=== PATIENT | female | born 1990 | race Caucasian/White ===

== ENCOUNTER 2016-09-05 09:20 | Outpatient (CLI) | payer OTHER ==
[~2016-09-05 09:20] MED LIST: ACET-1256 PO; BISA-16 PO; CLIN1GEL29 TOP; FRCT/ PO; ONDA4TAB10 SL; ONDA4TAB4 PO; POLY335019 PO; PRENTAB26 PO; PROM25TA PO
[2016-09-05] MEDS ORDERED: LACTATED RINGER'S 1000ML 500 ML IV ONE (09:43)
[2016-09-05] MEDS ORDERED: LACTATED RINGER'S 1000ML 1,000 ML IV SCH (09:43)
[2016-09-05] MEDS ORDERED: ACETAMINOPHEN 325 MG TAB PO PRN (09:45)
[2016-09-05] MEDS ORDERED: PROMETHAZINE HCL INJ 25 MG in SODIUM CHLORIDE 0.9% 50ML 50 ML IV PRN (09:45)
[2016-09-05] MEDS ORDERED: ONDANSETRON INJ 2 MG/ML 2 ML VIAL IV PRN (09:45)
[2016-09-05 10:46] LABS: BASO % 0.1 %; BASO ABS # 0.01 K/uL (0-0.2); COMPLETE YES; EOS % 1.5 %; HEMATOCRIT 29.4 % (37-47); IG% 0.5 %; LYMPH % 15.4 %; LYMPH ABS # 2.02 K/uL (1.2-3.4); MEAN CELL VOLUME 88.3 fL (80-100); MEAN CORPUSCULAR HEMOGLOBIN 29.4 pg (25-34); MEAN CORPUSCULAR HGB CONC 33.3 g/dl (32-36); MEAN PLATELET VOLUME 10.2 fL (7.4-10.4); NEUT % 78.5 %; PLATELET COUNT 183 K/uL (130-400); RED BLOOD COUNT 3.33 M/uL (4.2-5.4); WHITE BLOOD COUNT 13.08 K/uL (4.8-10.8)
[2016-09-05 10:58] LABS: URINE APPEARANCE CLEAR (CLEAR); URINE BILIRUBIN NEG (NEG); URINE COLOR YELLOW; URINE EPITHELIAL CELL AUTO >30 /lpf (0-5); URINE NITRITE NEG (NEG); URINE SPECIFIC GRAVITY 1.011 (1.000-1.030); UROBILINOGEN NEG (NEG); ZZUR CULT IF INDIC CLEAN CATCH NO
[2016-09-05 11:05] LABS: MANUAL MICROSCOPIC REQUIRED? NO; REVIEW REQ? NO
[2016-09-05 12:18] LABS: ALT/SGPT 17 U/L (12-78); AMYLASE 29 U/L (25-115); AST/SGOT 17 U/L (15-37); BLOOD UREA NITROGEN 10 mg/dl (7-18); BUN/CREATININE RATIO 20.3 (10-20); CALCIUM 8.2 mg/dl (8.5-10.1); CARBON DIOXIDE 25 mmol/L (21-32); CHLORIDE 108 mmol/L (98-107); CREATININE 0.49 mg/dl (0.60-1.20); GLUCOSE 69 mg/dl (70-99); SODIUM 141 mmol/L (136-145)
[2016-09-05 12:20] LABS: ALB/GLOB RATIO 0.7 (0.9-2); ALKALINE PHOSPHATASE 70 U/L (45-117)
[2016-09-05] MEDS ORDERED: FRRS300 MT (13:08)
== END 2016-09-05 13:25 | disposition home or self-care (01) ==
LOC: C.OPB 09:20 → C.LD 09:20 → C.OPB 13:25
PROVIDERS: ATTEND Obstetrics & Gynecology
DX: O26.893 Other specified pregnancy related conditions, third trimester (principal); O21.0 Mild hyperemesis gravidarum; O34.43 Maternal care for other abnormalities of cervix, third trimester; Z3A.33 33 weeks gestation of pregnancy; Z86.14 Personal history of Methicillin resistant Staphylococcus aureus infection

== ENCOUNTER 2016-10-23 03:21 | Inpatient (IN) | payer OTHER ==
[~2016-10-23] VITALS: Ht 165.1 cm; Wt 79.4 kg
[~2016-10-23 03:21] MED LIST changes: +FRRS300 MT
[2016-10-23] MEDS ORDERED: LACTATED RINGER'S 1000ML 1,000 ML IV PRN (03:34)
[2016-10-23] MEDS ORDERED: LACTATED RINGER'S 1000ML 1,000 ML IV SCH (03:34)
[2016-10-23 04:06] LABS: HEMATOCRIT 32.9 % (37-47); MEAN CELL VOLUME 88.7 fL (80-100); MEAN CORPUSCULAR HEMOGLOBIN 28.8 pg (25-34); MEAN PLATELET VOLUME 10.5 fL (7.4-10.4); PLATELET COUNT 183 K/uL (130-400); RED BLOOD COUNT 3.71 M/uL (4.2-5.4); WHITE BLOOD COUNT 12.65 K/uL (4.8-10.8)
[2016-10-23 04:11] LABS: MEAN CORPUSCULAR HGB CONC 32.5 g/dl (32-36)
--- NOTE | 2016-10-23 04:20 | History and Physical ---
History & Physical Date of Service Oct 23, 2016. Complaint Check Labor History of Present Illness Source: patient This is a 26-year-old due date was 10/20/2016. Patient is 40 weeks and 3 days gestation. presentas to L&D for labor check. No shortness of breath no chills no fever Melissa rupture of membranes. no bloody show. Pelvic exam shows she is 4 cm/ 50percent effaced and -1 station. Bedside ultrasound shows cephalic presentation. Patient is therefore admitted. course has been unremarkable. Labs reviewed. 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 Past Medical History Hx fo MRSA Past Surgical History Colposocpy Family History [place] Social History Smoking Status: Never Smoker Smokeless Tobacco Use: No Alcohol Use: none Drug Use: none Marital Status: Occupational Status: unemployed Allergies Coded Allergies: No Known Allergies (Unverified , 03/28/16) Home Medications Scheduled Clindamycin Phosphate-Benzoyl (Clindamycin/Benzoyl Perox), 1 APPLN TOP BID Ferrous Sulfate (Ferrous Sulfate), 325 MG MT BID Multivit/Min/Iron/Fol Ac/Pren ( Vitamin), 1 TAB PO DAILY Ondasetron Odt (Zofran Odt), 4 MG SL Q6H Scheduled PRN Acetamin/Butalbital/Caffeine (Fioricet), 1 TAB PO Q4 PRN for Headache Acetaminophen (Tylenol), 500-1,000 MG PO for Headache or Pain Bisacodyl (Dulcolax), 1-3 TAB PO DAILY PRN for Constipation Ondansetron Tab (Zofran), 4 MG PO Q8 PRN for Nausea Polyethylene Glycol 3350 (Miralax), 17 GM PO DAILY PRN for Constipation Promethazine (Phenergan), 25 MG PO Q6H PRN for Nausea Review of Systems Constitutional: No fever, No chills, No sweats, No weight loss, No weakness, No fatigue, No problem reported Eyes: No worsening of vision, No eye pain, No redness, No discharge, No diplopia, No problem reported ENT: No hearing loss, No unusual epistaxis, No nasal symptoms, No sore throat, No tinnitus, No dental problems, No trouble swallowing, No problem reported Respiratory: No cough, No sputum, No wheezing, No shortness of breath, No dyspnea on exertion, No dyspnea at rest, No hemoptysis, No problem reported Cardiovascular: No chest pain, No orthopnea, No PND, No edema, No claudication , No palpitations, No problem reported Abdomen: No pain, No nausea, No vomiting, No diarrhea, No constipation, No GI bleeding, No problem reported Musculoskeletal: No joint pain, No muscle pain, No swelling, No calf pain, No problem reported Genitourinary - Female: No dysuria, No urinary frequency, No urinary urgency, No urinary incontinence, No urinary retention, No hematuria, No dysmenorrhea, No menorrhagia, No metrorrhagia, No rash, No vaginal bleeding, No vaginal discharge, No vaginal itching, No vulvodynia, No , No problem reported Neurologic: No memory loss, No paralysis, No weakness, No numbness/tingling, No vertigo, No balance problems, No problem reported Psychiatric: No depression symptoms, No anhedonism, No anxiety, No insomnia, No substance abuse, No problem reported Endocrine: No fatigue, No excessive thirst, No excessive urination, No problem reported Hematologic / Lymphatic: No abnormal bleeding/bruising, No clotting problems, No swollen lymph nodes, No night sweats, No problem reported Integumentary: No rash, No itch, No new/changing skin lesions, No color change , No bleeding, No problem reported Allergic / Immunologic: No environmental allergies, No seasonal allergies, No pet sensitivities, No food allergies, No hives, No frequent infections, No poor healing, No prolonged convalescence, No problem reported Physical Exam General Appearance: WD/WN Head: normocephalic Eyes: normal inspection ENT: normal ENT inspection Neck: supple Respiratory/Chest: chest non-tender Cardiovascular: regular rate, rhythm Abdomen / GI: normal bowel sounds Genitourinary - Female: external genitalia normal Back: normal inspection Extremities: normal inspection 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
[2016-10-23] MEDS ORDERED: EpHEDrine SULFATE INJ 50 MG/ML AMP ONE (04:54)
[2016-10-23] MEDS ORDERED: BUPIVACAINE 0.25% 30 ML VIAL ONE (04:54)
[2016-10-23] MEDS ORDERED: FENTANYL 2MCG/ML ROPIV 1.25MG/ML 100ML BAG EPI ONE (04:54)
[2016-10-23] MEDS ORDERED: FENTANYL CITRATE INJ 50 MCG/1 ML 2 ML VIAL ONE (04:55)
[2016-10-23] MEDS ORDERED: ONDANSETRON INJ 2 MG/ML 2 ML VIAL IV PRN (05:00)
[2016-10-23] MEDS ORDERED: NALOXONE HCL INJ 0.4 MG/1 ML VIAL/CARP IV PRN (05:00)
[2016-10-23] MEDS ORDERED: FENTANYL 2MCG/ML ROPIV 1.25MG/ML 100ML BAG EPI PRN (05:00)
[2016-10-23] MEDS ORDERED: DiphenhydrAMINE HCL 50 MG/ML VIAL IV PRN (05:00)
[2016-10-23] MEDS ORDERED: LACTATED RINGER'S 1000ML 500 ML IV PRN ×2 (05:00→06:58)
[2016-10-23] MEDS ORDERED: EpHEDrine SULFATE INJ 50 MG/ML AMP IV PRN (05:00)
[2016-10-23] MEDS ORDERED: NALOXONE HCL INJ 1 MG in SODIUM CHLORIDE 0.9% 1000ML 1,000 ML IV PRN (05:00)
[2016-10-23] MEDS ORDERED: NALBUPHINE HCL INJ 10 MG/ML AMP IV PRN (05:00)
[2016-10-23 05:13] VITALS: Ht 165.1 cm; Wt 79.4 kg
[2016-10-23] MEDS ORDERED: OXYTOCIN 30 UNITS/500ML NSS IV PRN ×2 (07:00→09:00)
[2016-10-23] MEDS ORDERED: BENZOCAINE 20% AER SPR 82.5 GM CAN EXT PRN (09:00)
[2016-10-23] MEDS ORDERED: HYDROCORTISONE ACETATE 25 MG SUPP PR PRN (09:00)
[2016-10-23] MEDS ORDERED: LANOLIN OINT EXT PRN ×2 (09:00)
[2016-10-23] MEDS ORDERED: DIPHTHERIA/TETANUS/PERTUSSIS 0.5 ML SYR/VIAL IM. ONE (09:00)
[2016-10-23] MEDS ORDERED: OXYCODONE/ACETAMINOPHEN 5-325 TAB PO PRN (09:00)
[2016-10-23] MEDS ORDERED: ACETAMINOPHEN/CODEINE 300/30MG TAB PO PRN (09:00)
[2016-10-23] MEDS ORDERED: ACETAMINOPHEN 325 MG TAB PO PRN (09:00)
[2016-10-23] MEDS ORDERED: SUPERCREAM 0.870 % 15GM JAR EXT PRN (09:00)
--- NOTE | 2016-10-23 09:18 | Progress Note ---
Progress Note Date of Service Oct 23, 2016. Progress Note DELIVERY NOTE: DATE OF DELIVERY: 10/23/2016 TIME OF DELIVERY: 0850 DELIVERY OF PLACENTA: 0852 DELIVERY SUMMARY: Patient is a @ 40.3 weeks who was admitted to L&D in active labor on the morning of 10/23/16. She received an epidural for anesthesia. AROM with clear fluid performed at 0704. She reached complete dilation at 0842 with the urge to push. She pushed to delivery at 0850. She delivered a viable female in the SUKHDEEP position to an intact perineum. Anterior shoulder was delivered with Chantell maneuver. Baby was placed on the patients abdomen, cord was clamped x 2 and cut. APGARs were 8 at 1 minute and 9 at minutes. Cord blood was obtained. An intact placenta with a 3 VC delivered spontaneously. Oxytocin infusion was began. The lower uterine segment and vagina was cleared of any blood clots and debris. Exploration of the perineum noted no lacerations. EBL was 250 cc. All sponge and instrument counts were found to be correct x 2. Patient tolerated the delivery well and was in recovery with stable vital signs.
--- NOTE | 2016-10-23 10:05 | Anesthesia Procedure Note ---
Anesthesia Epidural Removal Nt Date & Time Oct 23, 2016 at 10:05 Vital Signs Pain Intensity: 0.0 Notes Mental Status: alert / awake / arousable, participated in evaluation Nausea / Vomiting: adequately controlled Pain: adequately controlled Airway Patency, RR, SpO2: stable & adequate BP & HR: stable & adequate Hydration State: stable & adequate Neuraxial Anesthesia: was administered, sensory block is resolving Anesthetic Complications: no major complications apparent, pt satisfied with anesthetic care Epidural: removed without complications, with tip intact
[2016-10-23] MEDS: IBUPROFEN 600 MG TAB PO PRN ×3 (11:20→21:08)
[2016-10-23 15:00] VITALS: BP 106/72; PULSE 71; TEMP 36.8; O2SAT 99
[2016-10-23] MEDS: DOCUSATE SODIUM 100 MG CAP PO SCH (19:25)
[2016-10-23 19:35] VITALS: BP 97/58; PULSE 90; TEMP 36.5; O2SAT 97
[2016-10-23 23:00] VITALS: BP 115/75; PULSE 85; TEMP 36.6; O2SAT 96
[2016-10-24] MEDS: ACETAMINOPHEN/CODEINE 300/30MG TAB PO PRN ×3 (02:23→10:11)
[2016-10-24 03:20] VITALS: BP 107/69; PULSE 76; TEMP 36.5; O2SAT 97
[2016-10-24] MEDS: IBUPROFEN 600 MG TAB PO PRN ×2 (06:04→10:10)
[2016-10-24 07:21] LABS: HEMATOCRIT 31.7 % (37-47)
[2016-10-24] MEDS ORDERED: MTR600X PO (07:32)
--- NOTE | 2016-10-24 07:34 | Discharge Instructions ---
Discharge Instructions Date of Service Oct 24, 2016. Admission Reason for Admission: Check Labor Discharge Discharge Diagnosis / Problem: term delivered Discharge Goals Goal(s): Routine recovery after delivery Activity Recommendations Activity Limitations: as noted below Lifting Limitations: no more than 10 pounds Exercise/Sports Limitations: gradually increase as tolerated May Resume Sexual Activity: after follow-up appointment Shower/Bathe: no limitations Driving or Machine Use: resume 3 days after discharge . Instructions / Follow-Up Instructions / Follow-Up ACTIVITY RECOMMENDATIONS: * Gradual return to full activity over the next 2-3 weeks. * No lifting - nothing heavier than baby over the next 2-3 weeks. * Do not engage in vigorous exercise, sexual activity or sports until cleared by your physician. * Do not drive or operate any motorized equipment until cleared by your physician. * You may shower/bathe daily. BREAST CARE: If you are not breast feeding: * Wear a supportive bra 24 hours a day for one to two weeks. * Avoid stimulating your breasts and nipples as much as possible during the first few weeks after delivery. * When taking a shower, have the warm water hit your back, not breasts. * When your breasts feel full, apply ice packs. Usually three to four times a day helps ease the discomfort. * Take a mild pain medication (Tylenol/Motrin) when you are uncomfortable. If breast feeding: * Use breast milk to lubricate nipples. Lansinoh cream may be used for sore nipples. You do not need to remove cream prior to breast feeding. If using a different brand of cream, check the label for directions regarding removal of cream prior to nursing. * Wear a supportive bra. * If having problems with breasts or breast feeding, call a outside sales consultant or your health care provider. EPISIOTOMY CARE: After delivery, if you have an episiotomy (stitches), the following steps will ease discomfort and aid healing. * For the first 24 hours after delivery, place ice packs next to your episiotomy to help reduce swelling. * After the first 24 hour-period, sitz baths, either portable or in the tub, are suggested. A shower with a shower arm sprayed over the episiotomy may be comforting. * Huong care should be done after each voiding and bowel movement. Squirt warm water from a plastic bottle over the perineum (region of the body between the anus and urinary opening) and pat dry. * Use Dermoplast to ease discomfort. Shake container. Lynx directly over the episiotomy. * Place a Tucks on a clean sanitary pad next to your episiotomy. OVER THE COUNTER MEDICATION: * For discomfort or pain, you may use Acetaminophen (Tylenol), Ibuprofen (Advil ), or Naproxen (Aleve) following the package directions. * For constipation you may use Colace following the package directions. SPECIAL CARE INSTRUCTIONS: When you are discharged from the hospital, it is important for you to follow the instructions listed below: * During the first week at home, you should be able to care for yourself and your baby. In addition, the usual light household activities are encouraged. * Limit your activities to the way you feel. Do not try to clean the house or move furniture. Be sensible. * If you actively engage in sports and have done so up until the time of your delivery, you may resume these activities as soon as you feel able. This may take up to one month or even longer. Use good judgment. * Continue to take your vitamins for at least six weeks after the of your baby. * Your diet need not be limited unless you were on a special diet before your delivery. Breast-feeding mothers need around 2500 calories per day and at least 64-80 ounces of fluid per day (8 to 10 glasses). * You should eat foods from the four major food groups. Crash diets or fad diets are to be avoided. Eating lean meats, fresh fruits and vegetables, low-fat dairy products, high fiber foods and a regular exercise program, will help you get back to your pre- weight without putting your health at risk. * Constipation is sometimes a problem after delivery. Take a mild laxative as needed. If breast feeding, Milk of Magnesia is acceptable to use. You may use a suppository or Fleets enema if no episiotomy. * A daily shower or tub bath is suggested. Be sure to thoroughly and gently dry the perineum. * A bloody vaginal discharge will usually continue until around four weeks post . A small amount of bleeding may continue for as long as six weeks. Vaginal discharge changes from the bright red bleeding after delivery to pink then brownish and finally yellowish-pink before becoming white and disappearing. * Bleeding may increase with activity. Your first period may come in 4-8 weeks. If you are breast feeding, your period may be delayed even longer. * [place] (sex) can begin whenever both you and your partner feel comfortable and do not have any form of genital infection. It is recommended that you wait until after your return appointment and discuss with your physician. If you have questions, please talk to your health care practitioner. A condom should be used to prevent infection and . * Foreplay, gentle intercourse and lubrication is very important the first several times to prevent pain. A water-based lubricant such as K-Y jelly or Astroglide may be used. * Tampons may be used six weeks after delivery. * Douching should be avoided for 6 weeks after delivery. * If you have RH negative blood and your baby is RH positive, you will receive RHOGAM by injection prior to discharge. The nurse will give you a card to keep with you that has the date and place that you received RHOGAM after delivery. * During your care, you had a Rubella screen done to check for the presence of rubella antibodies in your blood. If your test was negative, you will receive a Rubella vaccine prior to discharge. This vaccine may cause a fever, soreness at the injection site and flu-like symptoms. If these symptoms persist, notify your health care practitioner. is not advised for three months after a Rubella vaccine. There is a higher chance of having a baby with defects if conceived within three months of getting the vaccine. * If you were discharged 24 hours from delivery or before 48 hours: Visiting nurses will come to your home 48 hours after discharge to assess you and your baby. The visiting nurse will meet with you while you are in the hospital to arrange a time and get directions to your home. * Verbalizes understanding of car seat law as reviewed with patient nursing. * Car Seat hand-out given and reviewed with patient by nursing. * Shaken baby information reviewed with patient by nursing. Call you doctor if: * Heavy bleeding (saturating several pads an hour) or passing clots the size of your fist. * A fever >101 degrees F (38.3 degrees C) on two occasions four hours apart and/or chills. * Unusual pain in the pelvic or vaginal areas. * "Baby Blues" lasting longer than two weeks. If you have any questions or concerns, call your health care practitioner at . FOLLOW-UP VISIT: * Please call the office at to schedule a 6 week examination. It is important you keep this appointment. * It is important for you to make arrangements for either yearly or twice yearly check-ups thereafter. Current Hospital Diet Patient's current hospital diet: Regular OB Diet Discharge Diet Recommended Diet: Regular OB Diet Pending Studies Studies pending at discharge: no Medical Emergencies . Who to Call and When: Medical Emergencies: If at any time you feel your situation is an emergency, please call 911 immediately. . Non-Emergent Contact Non-Emergency issues call your: Primary Care Provider . . "Provider Documentation" section prepared by Vadim Yeung. . VTE Core Measure Inpt VTE Proph given/why not?: Treatment not indicated
[2016-10-24 07:35] VITALS: BP 102/66; PULSE 68; TEMP 36.7; O2SAT 98
[2016-10-24] MEDS ORDERED: FERROUS SULFATE 325 MG TAB PO SCH (08:00)
[2016-10-24] MEDS ORDERED: PRENATAL VITAMIN TAB PO SCH (08:00)
--- NOTE | 2016-10-24 08:01 | OB/GYN Progress Note ---
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 Subjective conversation w/ patient, physical exam Ambulation: ambulating normally Voiding: no voiding problems Passing Gas: Yes Diet Tolerance: Regular Diet Lochia: Small Feeding Type: Breast Feeding Objective Vital Signs Date Time Temp Pulse Resp B/P (MAP) Pulse Ox O2 Delivery O2 Flow Rate FiO2 10/24/16 07:35 36.7 68 16 102/66 (78) 98 Room Air 10/24/16 03:20 36.5 76 16 107/69 (82) 97 Room Air 10/23/16 23:00 36.6 85 18 115/75 (88) 96 Room Air 10/23/16 23:00 Room Air 10/23/16 19:35 Room Air 10/23/16 19:35 36.5 90 16 97/58 (71) 97 Room Air 10/23/16 15:00 36.8 71 16 106/72 (83) 99 Room Air 10/23/16 15:00 99 Room Air Physical Exam General Appearance: WELL-APPEARING, NO APPARENT DISTRESS Abdomen: non tender, soft, no organomegaly Fundus: Firm Extremities: non-tender, normal inspection, no pedal edema Laboratory Results Last 24 Hours Test 10/24/16 06:39 Hemoglobin 10.4 g/dL Hematocrit 31.7 % Assessment and Plan Post- Day Number: 2 Continue Routine Care: Discharged
[2016-10-24] MEDS: DOCUSATE SODIUM 100 MG CAP PO SCH (08:38)
[2016-10-24 13:10] VITALS: BP 111/73; PULSE 70; TEMP 36.9; O2SAT 98
[2016-10-24] MEDS ORDERED: BISACODYL 5 MG TABEC PO SCH (20:00)
[2016-10-25] MEDS ORDERED: BISACODYL 10 MG SUPP PR PRN (07:00)
== END 2016-10-24 14:05 | disposition home or self-care (01) | DRG 775 ==
LOC: C.OPB 03:21 → C.LD 03:21 → C.OPB 03:35 → C.LD 03:35 → C.OBG 13:59
PROVIDERS: ADMIT Obstetrics & Gynecology; ATTEND Obstetrics & Gynecology
PROC: 10907ZC Drainage of Amniotic Fluid, Therapeutic from Products of Conception, Via Natural or Artificial Opening (ICD-10-PCS; principal; 2016-10-23)
PROC: 10E0XZZ Delivery of Products of Conception, External Approach (ICD-10-PCS; principal; 2016-10-23)
DX: O48.0 Post-term pregnancy (principal); Z3A.40 40 weeks gestation of pregnancy; Z37.0 Single live birth; Z79.899 Other long term (current) drug therapy; Z86.14 Personal history of Methicillin resistant Staphylococcus aureus infection

== ENCOUNTER 2023-09-24 20:35 | Inpatient (IN) ==
--- NOTE | 2023-09-24 20:43 | Emergency Department Note ---
Impression & Plan Depression with suicidal ideation, Anxiety ED Provider Note Provider: Himanshu Rojas MD DATE OF SERVICE: 09/24/2023 CHIEF COMPLAINT: Mental health evaluation HISTORY OF PRESENT ILLNESS: Patient is a 33-year-old female history of depression/anxiety on fluoxetine presenting here today brought by police for mental health evaluation. Patient evidently found out 4 months ago according to her that her significant other has been cheating on her. He paid for a second chance and she gave him this. They have 2 children get there and live together. Yesterday she found out that he wanted to end the relationship. She did not sleep much last night and went to work today and then has been very desponded regarding this. Patient states she is not sure how she can function. She is in a lot of social port from family by her report. Does have a therapist but they are currently out of town. Evidently talking with friends made some hopeless statements and statements of wanting to end her life. 302 petition issued and police brought her here for evaluation. Patient statement concerning with several described possible methods of wanting to end her life. Has told case management here that she wrote suicide letters to her children. States she has attempted suicide in the past. When asked if she go home that she would be safe and she did attempt to harm or self she states she does not know. PAST MEDICAL HISTORY: As noted above MEDICATIONS: No medication list SOCIAL HISTORY: Lives at home with 2 children PHYSICAL EXAM: GENERAL: alert and oriented laying on stretcher Head: normocephalic and atraumatic EYES: No injection, discharge or icterus. EOMI. NECK: Trachea midline. ENT: Mucous membranes pink and moist. LUNGS: Airway patent. No retractions or tachypnea HEART: Regular rate and rhythm. SKIN: Acyanotic, warm, dry, without rashes EXTREMITIES: Without swelling, tenderness or deformity NEUROLOGICAL: No focal deficits. No aphasia. No facial droop or slurred speech. Ambulatory. Psych: Flattened affect. Tearful at times. Poor eye contact. Reports hopelessness as well as endorsing suicidal thoughts. No HI reported. Patient's laboratory studies reviewed. Differential includes Mood disorder, infection, hypoglycemia, electrolyte abnormalities, cardiac sources, intracerebral event, toxicologic, trauma, neurologic, as well as other pathologies. IMPRESSION/MEDICAL DECISION MAKING: Patient with significant social stress and that of long-term relationship now with SI thoughts and plans. Does not appear to have acted on them at this point. Has made however some suicide letters which are highly concerning. Seen with case management here. Basic blood work was ordered. Limited family support evidently by her report and therapist currently out of town. No significant concerns for her safety. Feel that inpatient treatment likely require given the severity of petition and reported safety concerns. Quite anxious and given about Ativan to help with her anxiety. Blood work without significant abnormality. Patient was agreeable for voluntary inpatient treatment. Bed search initiated. More calm after the Ativan resting in room. [facility] accepted the patient for further care on a 201. DIAGNOSIS: Depression with suicidal ideation DISPOSITION: Accepted to [facility] for further inpatient care on a voluntary basis. Past Med/Surg History Problem List (Updated 09/24/23 @ 22:46 by Himanshu Rojas M.D.) Anxiety (Acute) Depression with suicidal ideation (Acute) Vomiting (Acute) Nausea and vomiting during Social History Smoking Status: Never smoker Feels Safe at Home: Yes Gender Identity: Female Allergies Allergies Allergy/AdvReac Type Severity Reaction Status Date / Time No Known Allergies Allergy Verified 09/24/23 21:56 Home Meds Home Medications Medication Instructions Recorded Confirmed clindamycin phosphate 1 % topical See Rx Instructions .Route .COMPLEX 09/24/23 09/24/23 gel cyclobenzaprine 10 mg tablet 10 mg DAILY PRN Muscle Spasm 09/24/23 09/24/23 fluoxetine 40 mg capsule 40 mg HS 09/24/23 09/24/23 hydroxyzine HCl 25 mg tablet 50 mg HS PRN Insomnia 09/24/23 09/24/23 Results & Data (ED) Vital Signs Vital Signs - 24 hr 09/24/23 20:36 09/24/23 20:36 Temperature 36.6 C Temperature Source Oral Pulse Rate 88 Respiratory Rate 16 Respiratory Effort / Characteristics Non-Labored Non-Labored Respiratory Depth Normal Normal Blood Pressure 144/87 H Blood Pressure Mean 106 Pulse Oximetry 100 Oxygen Delivery Method Room Air Sepsis Recent Fever Within 48 Hours No Sepsis New/Unexplained Change in Mental Status No Sepsis Action Taken by Nursing No Action Required Laboratory Data 09/24/23 20:45 09/24/23 20:45 Lab Results 09/24/23 09/24/23 Range/Units 20:40 20:45 WBC 7.68 (4.8-10.8) K/ul RBC 4.27 (4.20-5.40) M/uL Hgb 12.5 (12.0-16.0) g/dl Hct 37.2 (37.0-47.0) % MCV 87.1 (80.0-100.0) fL MCH 29.3 (25.0-34.0) pg MCHC 33.6 (32.0-36.0) g/dL RDW Std Deviation 40.3 (36.4-46.3) fL RDW Coeff of Ean 12.8 (11.5-14.5) % Plt Count 223 (130-400) K/uL MPV 11.5 (9.4-12.4) fL Immature Gran % (Auto) 0.3 % Neut % (Auto) 68.9 % Lymph % (Auto) 24.7 % [place] % (Auto) 5.2 % Eos % (Auto) 0.5 % Baso % (Auto) 0.4 % Neut # (Auto) 5.29 (1.40-6.50) K/uL Lymph # (Auto) 1.90 (1.20-3.40) K/uL [place] # (Auto) 0.40 (0.11-0.59) K/uL Eos # (Auto) 0.04 (0.00-0.50) K/uL Baso # (Auto) 0.03 (0.00-0.20) K/uL Immature Gran # (Auto) 0.02 (0.01-0.20) K/uL Sodium 137 (136-145) mmol/L Potassium 3.5 (3.5-5.1) mmol/L Chloride 105 (98-107) mmol/L Carbon Dioxide 22 (21-32) mmol/L Anion Gap 10 (3-11) BUN 13 (6-23) mg/dl Creatinine 0.71 (0.6-1.2) mg/dl Est Cr Clr Drug Dosing 89.0 ml/min Est GFR ( Amer) 129.7 ml/min Est GFR (Non-Af Amer) 111.9 ml/min BUN/Creatinine Ratio 18.3 (10-20) Glucose 105 H (70-99(Fasting)) mg/dl Calcium 9.5 (8.6-10.3) mg/dl Total Bilirubin 0.7 (0.2-1.0) mg/dl AST 20 (13-39) U/L ALT 15 (7-52) U/L Alkaline Phosphatase 35 (34-104) U/L Total Protein 7.7 (6.0-8.3) gm/dl Albumin 4.7 (3.4-5.0) gm/dl Globulin 3.0 (2.5-4.0) gm/dl Albumin/Globulin Ratio 1.6 (0.9-2) TSH 5.907 H (0.300-4.500) uIu/ml Free T4 1.20 (0.61-1.60) ng/dl HCG, Qual Negative (Negative) Urine Color Dark Yellow Urine Appearance Cloudy A (Clear) Urine pH 5.5 (4.5-7.5) Ur Specific [place] 1.026 (1.000-1.030) Urine Protein 1+ H (Negative) Urine Glucose (UA) Negative (Negative) Urine Ketones 1+ H (Negative) Urine Blood Negative (Negative) Urine Nitrite Negative (Negative) Urine Bilirubin Negative (Negative) Urine Urobilinogen Negative (Negative) Ur Leukocyte Esterase Negative (Negative) Urine WBC (Auto) 0-5 (0-5) /hpf Urine RBC (Auto) 0-2 (0-2) /hpf U Hyaline Cast (Auto) 0-2 (0-2) /lpf U Epithel Cells (Auto) 11-20 H (0-2) /hpf Urine Bacteria (Auto) None Seen (None Seen) Salicylates < 3.0 L (3.0-30) mg/dl Urine Opiates Screen Neg (Neg) Ur Methadone, Qual Neg (Neg) Urine Fentanyl Screen Neg (Neg) Acetaminophen < 3 L (10-30) ug/ml Urine Barbiturates Neg (Neg) Ur Phencyclidine (PCP) Neg (Neg) U Amphetamin/Meth Scrn Neg (Neg) MDMA (Ecstasy) Screen Neg (Neg) U Benzodiazepines Scrn Neg (Neg) Ur Cocaine Metabolite Neg (Neg) U Marijuana (THC) Screen Pos H (Neg) Ethyl Alcohol mg/dL < 10.0 (<10.0) mg/dl SARS-CoV-2, RNA, NAAT NEGATIVE (NEGATIVE) Administered Medications Discontinued Medications Lorazepam (Lorazepam 0.5 Mg Tab) 0.5 mg PO NOW STA Stop: 09/24/23 21:53 Last Admin: 09/24/23 21:58 Dose: 0.5 mg Documented By: TATYANA Discharge Plan Visit Data Chief Complaint: Mental Health Evaluation Stated Complaint: 302 ED Provider: Himanshu Rojas Discharge Problem: Depression with suicidal ideation, Anxiety Patient Disposition: Transfer Behavioral Health Fac Discharge Instructions Interventions: ED Discharge Assessment Last Done: 09/25/23 00:14 Forms Stand Alone Forms: [facility], Suicide Prevention Resources Prescriptions Prescriptions: No Action clindamycin phosphate 1 % gel See Rx Instructions .ROUTE .COMPLEX Rx Instructions: Topical application cyclobenzaprine 10 mg tablet 10 mg DAILY PRN (Reason: Muscle Spasm) fluoxetine 40 mg capsule 40 mg HS hydroxyzine HCl 25 mg tablet 50 mg HS PRN (Reason: Insomnia) Referrals Referrals: PCP,NO [Physician] -
[2023-09-24 21:33] LABS: Pregnancy Test, Serum Negative (Negative)
[2023-09-24 21:34] LABS: Appearance Urine Cloudy (Clear); Bacteria Urine Automated None Seen (None Seen); Bilirubin Urine Negative (Negative); Blood Urine Negative (Negative); Cast Urine Automated 0-2 /lpf (0-2); Color Urine Dark Yellow; Glucose Urine UA Negative (Negative); Ketones Urine 1+ (Negative); Leukocyte Esterase Urine Negative (Negative); Nitrite Urine Negative (Negative); Protein Urine 1+ (Negative); RBC Urine Automated 0-2 /hpf (0-2); Specific Gravity Urine 1.026 (1.000-1.030); Urobilinogen Urine Negative (Negative); WBC Urine Automated 0-5 /hpf (0-5); pH Urine 5.5 (4.5-7.5)
[2023-09-24 21:35] LABS: Albumin Globulin Ratio 1.6 (0.9-2); Albumin Level 4.7 gm/dl (3.4-5.0); BUN Creatinine Ratio 18.3 (10-20); Bilirubin,Total 0.7 mg/dl (0.2-1.0); Calcium 9.5 mg/dl (8.6-10.3); Est GFR (African American) 129.7 ml/min; Est GFR (Non-African American) 111.9 ml/min; Potassium 3.5 mmol/L (3.5-5.1); Total Protein 7.7 gm/dl (6.0-8.3)
[2023-09-24 21:37] LABS: Acetaminophen < 3 ug/ml (10-30); Salicylate < 3.0 mg/dl (3.0-30)
[2023-09-24 21:49] LABS: Thyroid Stimulating Hormone 5.907 uIu/ml (0.300-4.500)
[2023-09-24 21:50] LABS: Basophils # (auto) 0.03 K/uL (0.00-0.20); Basophils % (auto) 0.4 %; Eosinophils # (auto) 0.04 K/uL (0.00-0.50); Eosinophils % (auto) 0.5 %; Hematocrit (blood only) 37.2 % (37.0-47.0); Hemoglobin 12.5 g/dl (12.0-16.0); Immature Granulocytes # (auto) 0.02 K/uL (0.01-0.20); Immature Granulocytes % (auto) 0.3 %; Lymphocytes % (auto) 24.7 %; Mean Corpuscular Hemoglobin 29.3 pg (25.0-34.0); Mean Corpuscular Hgb Conc 33.6 g/dL (32.0-36.0); Mean Corpuscular Volume 87.1 fL (80.0-100.0); Mean Platelet Volume 11.5 fL (9.4-12.4); Monocytes % (auto) 5.2 %; Neutrophils # (auto) 5.29 K/uL (1.40-6.50); Neutrophils % (auto) 68.9 %; Platelet Count 223 K/uL (130-400); RDW Coefficient of Variation 12.8 % (11.5-14.5); RDW Standard Deviation 40.3 fL (36.4-46.3); Red Blood Count 4.27 M/uL (4.20-5.40); White Blood Count 7.68 K/ul (4.8-10.8)
[2023-09-24] MEDS: LORazepam 0.5 MG TAB PO STA (21:58)
[2023-09-24 22:25] LABS: T4 Free Thyroxine 1.2 ng/dl (0.61-1.60)
[2023-09-24 22:25] LABS: Amphetamines+Metham, Urine Neg (Neg); Barbiturates, Urine Neg (Neg); Benzodiazepine, Urine Neg (Neg); Cocaine, Urine Neg (Neg); Fentanyl, Urine Neg (Neg); MDMA (Ecstacy), Urine Neg (Neg); Marijuana, Urine Pos (Neg); Methadone, Urine Neg (Neg); Opiate, Urine Neg (Neg); Phencyclidine, Urine Neg (Neg)
[2023-09-25] MEDS ORDERED: ALUMINUM/MAGNESIUM SUSP 30 ML UDC PO PRN (01:09)
[2023-09-25] MEDS ORDERED: SODIUM CHLORIDE 0.65% NA SOLN 45 ML (OCEAN) PRN (01:09)
[2023-09-25] MEDS ORDERED: ACETAMINOPHEN 325 MG TAB PO PRN (01:09)
[2023-09-25] MEDS ORDERED: MAGNESIUM HYDROXIDE SUSP 30 ML UDC PO PRN (01:09)
[2023-09-25] MEDS ORDERED: BISMUTH SUBSALICYLATE LIQD 236 ML PO PRN (01:09)
[2023-09-25] MEDS: hydrOXYzine HCl 25 MG TAB PO PRN (02:02)
[2023-09-25] MEDS: FLUoxetine HCL 20 MG CAP PO STA (02:03)
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
--- OUTSIDE RECORDS SUMMARY | 2023-09-25 07:26 | External Medical Summary | Summary of Care ---
Author Name Unknown Organization [facility] Address [address] [place] [address] Phone [phone] Care Team Providers Care Road Mechanic Name Role Phone Patricia Edmond Primary Care Provider [phone]- [phone] Encounter Details Date Type Department Care Team ([facility] st Contact Info) Description 05/30/[address] [address] Natalia Baer CRNP [address] [place], [place] [phone] Allergies No known active allergiesdocumented as of this encounter (statuses as of 05/30/2023) Medications Medication Sig Dispensed Refills Start Date End Date Status Clindamycin Phosphate 1 % External Gel APPLY TO THE AFFECTED AREA(S) TWO TIMES A DAY. 60 g 5 10/31/2021 Active hydrOXYzine HCl 25 MG Oral TabletIndications:GA D (generalized anxiety disorder) Take 1 Tablet by mouth every 6 hours as needed for Anxiety. 40 Tablet 1 03/07/2023 Active FLUoxetine HCl 40 MG Oral Capsule (PROzac)Indications: KENNEDY (generalized anxiety disorder) Take 1 Capsule by mouth in the morning. 90 Capsule 3 05/24/2023 Active documented as of this encounter (statuses as of 05/30/2023) Active Problems Problem Noted Date Diagnosed Date KENNEDY (generalized anxiety disorder) 01/26/2020 Insomnia 01/26/2020 documented as of this encounter (statuses as of 05/30/2023) Resolved Problems Problem Noted Date Diagnosed Date [...] 2015 Colpo 03/13/16 Pap with co-test at [facility] Hx MRSA infection 03/13/2016 10/23/2016 Overview: Age [...] as of this encounter (statuses as of 05/30/2023) Immunizations Name Administration Dates Next Due COVID-19 [...] on file documented as of this encounter Miscellaneous Notes * Telephone Encounter - Kamryn Wayne OSA - 05/30/2023 2:43 PM EST error documented in this encounter Plan of Treatment Health Maintenance Due Date Last Done Comments GARDASIL-HPV IMMUNIZATION SERIES (3 - 3-dose series) 03/29/2015 01/04/2015 (Declined), 12/30/2013 (Declined) COVID-19 Vaccine (3 - season) 2022 05/28/2020, 05/07/2020 Depression Screening 05/17/2024 05/17/2023 Pap Smear 04/13/2025 04/13/2022, 09/2015, 08/30/2015, Additional history exists Cervical Cancer Screening [...] Not on filedocumented as of this encounter Care Teams Road Mechanic Relationship Specialty Start Date End Date Patricia Emdond CRNP [address] [place] [address] PCP - General Nurse Practitioner 02/22/22 documented as of this encounter
--- OUTSIDE RECORDS SUMMARY | 2023-09-25 07:26 | External Medical Summary | Summary of Care ---
Author Name Unknown Organization [facility] Address [address] [place] [address] Phone [phone] Care Team Providers Care Partnership Development Manager Name Role Phone Patricia Edmond Primary Care Provider [phone]- [phone] Reason for Visit * Reason Comments Acute Left sided rib pain Encounter Details Date Type Department Care Team (Late st Contact Info) Description 05/30/2023 12:40 PM EST Telemedicine [facility] [address] [place] [address] Natalia Baer CRNP [address] [place], [place] [phone] Rib pain on left side* Allergies No known active allergiesdocumented as of [...] Colpo 03/13/16 Pap with co-test at [facility] Hx MRSA infection 03/13/2016 10/23/2016 Overview: Age [...] on file documented as of this encounter Progress Notes * KeyurNatalia CRNP - 05/30/2023 12:42 PM EST Images from the original note were not included. History of Present Illness Nataliia Kaur is a 33 year old female that presents for left lower rib pain. She was evaluated 05/27/23 for cough, congestion, body aches and sore throat for three days. Produced negative covid, influenza and RSV. Today she reports viral symptoms resolved. Now with left lower rib pain that's noticeable with normal breathing. She's concerned for fracture rib from coughing. Physical Exam No acute distress Holding Left lower rib area, she reports hurts with palpation of lower rib cage area Assessment and Plan Rib pain on left side - XR RIBS UNILATERAL W/PA CHEST MINIMUM 3 VIEWS Alternate with tylenol and ibuprofen, low dose per label instructions as needed for pain. Brace side for cough or sneeze. Viral symptoms resolved. Time: I spent a total of 10-19 minutes (exact time 12 mins) on the date of service in preparation, delivery, and documentation of the care provided to Nataliia Kaur excluding any time spent in the performance of separately billed services. documented in this encounter Plan of Treatment Pending Results Name Type Priority Associated Diagnoses Date /Time XR RIBS UNILATERAL W/PA CHEST MINIMUM 3 VIEWS Medical Imaging Routine Rib pain on left side 05/30/2023 12:52 PM EST Health Maintenance Due Date Last Done Comments GARDASIL-HPV IMMUNIZATION SERIES (3 - 3-dose series) 03/29/2015 01/04/2015 (Declined), 12/30/2013 (Declined) COVID-19 Vaccine (3 - 2022- season) 2022 05/28/2020, 05/07/2020 Depression [...] as of this encounter Visit Diagnoses Diagnosis Rib pain on left side- Primary Chest pain, unspecified documented in this encounter Care Teams Partnership Development Manager Relationship Specialty Start Date End Date Patricia Edmond CRNP [address] [place] [address] PCP - General Nurse Practitioner 02/22/22 documented as of this encounter
--- OUTSIDE RECORDS SUMMARY | 2023-09-25 07:26 | External Medical Summary | Summary of Care ---
Author Name Unknown Organization [facility] Address [address] [place] [address] Phone [phone] Care Team Providers Care Echocardiography Radiology Technologist Name Role Phone Jaimeshalini Patricia BRAMBILA Primary Care Provider [phone]- [phone] Reason for Visit * Reason Onset Date Comments Medication Refill 06/26/2023 Encounter Details Date Type Department Care Team (Late st Contact Info) Description 06/26/[address] [address] Trina Holder, DO [address] [place] [address] Allergies No known active allergiesdocumented as of this encounter (statuses as of 07/01/2023) Medications Medication Sig Dispensed Refills Start Date End Date Status hydrOXYzine HCl 25 MG Oral TabletIndications :KENNEDY (generalized anxiety disorder) Take 1 Tablet by mouth every 6 hours as needed for Anxiety. 40 Tablet 1 03/07/2023 Active FLUoxetine HCl 40 MG Oral Capsule (PROzac)Indicatio ns:KENNEDY (generalized anxiety disorder) Take 1 Capsule by mouth in the morning. 90 Capsule 3 05/24/2023 Active Naproxen 500 MG Oral Tablet (Naprosyn)Indicat ions:Trapezius muscle spasm Take 1 Tablet by mouth 2 times a day as needed for Pain. With food 40 Tablet 1 06/11/2023 Active Cyclobenzaprine HCl 10 MG Oral Tablet (Flexeril)Indicat ions:Neck pain Take 0.5 Tablets by mouth at bedtime as needed for Muscle spasms. 20 Tablet 0 06/11/2023 Active Clindamycin Phosphate 1 % External Gel APPLY TO THE AFFECTED AREA(S) TWO TIMES A DAY. 60 g 5 07/01/2023 Active Clindamycin Phosphate 1 % External Gel APPLY TO THE AFFECTED AREA(S) TWO TIMES A DAY. 60 g 5 10/31/2021 06/26/2023 Discontinued (Refill) documented as of this encounter (statuses as of 07/01/2023) Active Problems Problem Noted Date Diagnosed Date KENNEDY (generalized anxiety disorder) 01/26/2020 Insomnia 01/26/2020 documented as of this encounter (statuses as of 07/01/2023) Resolved Problems Problem Noted Date Diagnosed Date [...] 2015 Colpo 03/13/16 Pap with co-test at [facility] Hx MRSA infection 03/13/2016 10/23/2016 Overview: [...] as of this encounter (statuses as of 07/01/2023) Immunizations Name Administration Dates Next Due COVID-19 [...] encounter Miscellaneous Notes * Telephone Encounter - Patricia Carter CRNP - 07/01/2023 10:50 AM EDTSigned Prescriptions: Disp Refills Clindamycin Phosphate 1 % External Gel 60 g 5 Sig: APPLY TO THE AFFECTED AREA(S) TWO TIMES A DAY.Authorizing Provider: PATRICIA CRATER * Telephone Encounter - Patricia Carter CRNP - 07/01/2023 10:48 AM EDTSigned Prescriptions: Disp Refills Clindamycin Phosphate 1 % External Gel 60 g 5 Sig: APPLY TO THE AFFECTED AREA(S) TWO TIMES A DAY. Authorizing Provider: PATRICIA CARTER * Telephone Encounter - Martine Sousa, licensing engineer - 07/01/2023 8:54 AM EDT Pt requesting HIGH PRIORITY due to being out of medication. Pt calling to check on status of Clindamycin Phosphate 1 % External Gel . Caller can be reached at [phone]. Thank you, Martine Sousa [employer] [facility] ([facility]) 07/01/2023,8:54 AM * Telephone Encounter - Leah Quinn LPN - 06/27/2023 8:02 AM EDTPending Prescriptions: Disp Refills Clindamycin Phosphate 1 % External Gel 60 g 5 Sig: APPLY TO THE AFFECTED AREA(S) TWO TIMES A DAY. * Telephone Encounter - Leah Quinn LPN - 06/27/2023 8:02 AM EDT Did you pend patient's preferred pharmacy and medication before forwarding?yes Pharmacy: [id number] [facility] Pending Prescriptions: Disp Refills Clindamycin Phosphate 1 % External Gel 60 g 5 Sig: APPLY TO THE AFFECTED AREA(S) TWO TIMES A DAY. Last Visit: 07/31/2022 (in office), 05/23/2020 (telemedicine) Next Visit: Visit date not found If no future appointments scheduled, and last appointment is greater than a year ago, please schedule patient for a follow-up appointment Last date the medication was ordered: 10/31/2021 Is this request for a controlled substance?No Urine Drug Screen:No results found for this or any previous visit. Patient Phone Numbers Labs: Lab Results Component Value Date/Time TSH 1.47 03/16/2022 03:50 PM TSH 1.81 07/06/2013 03:44 PM LDLCALC 86 10/17/2022 09:31 AM HGBA1C 5.5 10/17/2022 09:31 AM * Telephone Encounter - Brian Moore - 06/26/2023 5:46 PM EDTPending Prescriptions: Disp Refills Clindamycin Phosphate 1 % External Gel 60 g 5 Sig: APPLY TO THEAFFECTED AREA(S) TWO TIMES A DAY. documented in this encounter Plan of Treatment Health Maintenance Due Date Last Done Comments GARDASIL-HPV IMMUNIZATION SERIES (3 - 3-dose series) 03/29/2015 01/04/2015 (Declined), 12/30/2013 (Declined) COVID-19 Vaccine (2022- season) 2022 05/28/2020, 05/07/2020 Depression Screening 05/17/2024 05/17/2023 Pap Smear 04/13/2025 04/13/2022, 12/09/2015, 08/30/2015, Additional history exists Cervical Cancer Screening [...] filedocumented as of this encounter Care Teams Echocardiography Radiology Technologist Relationship Specialty Start Date End Date Patricia Carter CRNP [address] [place] [address] PCP - General Nurse Practitioner 02/22/22 documented as of this encounter
--- OUTSIDE RECORDS SUMMARY | 2023-09-25 07:27 | External Medical Summary | Summary of Care ---
Author Name Unknown Organization [facility] [address] [facility] [address] Phone [phone] Care Team Providers Care Field Crop Farm Worker Name Role Phone Patricia Edmond Primary Care Provider +1- [phone] Encounter Details Date Type Department Care Team (Late st Contact Info) Description 05/24/2023 Telephone Family Practice [facility] [address] [place] [address] Patricia Edmond CRNP [address] [place] [address] Allergies No known active allergiesdocumented as of this encounter (statuses as of 05/28/2023) Medications Medication Sig Dispensed Refills Start Date [...] as of this encounter (statuses as of 05/28/2023) Active Problems Problem Noted Date Diagnosed Date KENNEDY (generalized anxiety disorder) 01/26/2020 Insomnia 01/26/2020 documented as of this encounter (statuses as of 05/28/2023) Resolved Problems Problem Noted Date Diagnosed Date [...] Colpo 03/13/16 Pap with co-test at [facility] Hx MRSA infection 03/13/2016 10/23/2016 Overview: Age [...] as of this encounter (statuses as of 05/28/2023) Immunizations Name Administration Dates Next Due COVID-19 [...] encounter Miscellaneous Notes * Telephone Encounter - Leah Quinn LPN - 05/28/2023 8:39 AM EST Pt responded to my g message that same day. * Telephone Encounter - Taryn Darnell LPN - 05/24/2023 3:46 PM EST Called pt and left a vm message to call the office or read her myG message * Telephone Encounter - Patricia Edmond CRNP - 05/24/2023 11:36 AM EST Patient has not yet read myG about prozac dosing change I sent an updated rx for her afer her visit It's the same dose just in one capsule instead of having to take 4 10mg capsules If she doesn't read this today can you please call her to let her know about the change? Thank you! documented in this encounter Plan of Treatment Health Maintenance Due Date Last Done Comments GARDASIL-HPV IMMUNIZATION SERIES (3 - 3-dose series) 03/29/2015 01/04/2015 (Declined), 12/30/2013 (Declined) COVID-19 Vaccine ( season) 2022 05/28/2020, 05/07/2020 Depression Screening 05/17/2024 [...] filedocumented as of this encounter Care Teams Field Crop Farm Worker Relationship Specialty Start Date End Date Patricia Edmond CRNP [address] [place] [address] [address] PCP - General Nurse Practitioner 02/22/22 documented as of this encounter
--- OUTSIDE RECORDS SUMMARY | 2023-09-25 07:27 | External Medical Summary | Summary of Care ---
Author Name Unknown Organization [facility] Address [address] [facility] [address] Phone [phone] Care Team Providers Care Photographic Developer And Printer Name Role Phone Patricia Edmond Primary Care Provider +1- [phone] Encounter Details Date Type Department Care Team (Late st Contact Info) Description 05/24/2023 Telephone Family Practice [facility] [address] [place] [address] Patricia Edmond CRNP [address] [place] [address] Allergies No known active allergiesdocumented as of this encounter (statuses as of 05/27/2023) Medications Medication Sig Dispensed Refills Start Date [...] as of this encounter (statuses as of 05/27/2023) Active Problems Problem Noted Date Diagnosed Date KENNEDY (generalized anxiety disorder) 01/26/2020 Insomnia 01/26/2020 documented as of this encounter (statuses as of 05/27/2023) Resolved Problems Problem Noted Date Diagnosed Date [...] 2015 Colpo 03/13/16 Pap with co-test at [facility] Hx MRSA infection 03/13/2016 10/23/2016 [...] as of this encounter (statuses as of 05/27/2023) Immunizations Name Administration Dates Next Due COVID-19 [...] encounter Miscellaneous Notes * Telephone Encounter - Taryn Darnell LPN [...] filedocumented as of this encounter Care Teams Photographic Developer And Printer Relationship Specialty Start Date End Date Patricia Edmond CRNP [address] [place] [address] [address] PCP - General Nurse Practitioner 02/22/22 documented as of this encounter
--- OUTSIDE RECORDS SUMMARY | 2023-09-25 07:27 | External Medical Summary ---
Author Name Unknown Address Unknown Organization K01:[facility] [address] [facility] [place] [address] Laboratory Report Ordering Provider Test Date Status ANASTASIAMESERET 04/29/2023 13:10:59 Final Observation Date Value Abnormality Reference (Units) Status Hepatitis B virus surface Ab [Units/volume] in Serum or Plasma by Immunoassay 04/29/2023 13:10:59 >1000.0 (mIU/mL) Final Hepatitis B virus surface Ab [Presence] in Serum by Immunoassay 04/29/2023 13:10:59 Positive Final HEPATITIS B SURFACE ANTIBODY, INTERPRETATION 04/29/2023 13:10:59 Immune to Hepatitis B Virus Final POSITIVE: >=11.5 mIU/mL
INDETERMINATE: 8.5-<11.5 mIU/mL
NEGATIVE: <8.5 mIU/mL Performing Location [facility] [address] [place] [address]
--- OUTSIDE RECORDS SUMMARY | 2023-09-25 07:27 | External Medical Summary | Summary of Care ---
Author Name Unknown Organization [facility] Address [address] [place] [facility] [place] [address] Phone [phone] Care Team Providers Care Education Program Associate Name Role Phone Patricia Edmond Primary Care Provider +1- [phone] Reason for Visit * Reason Comments Follow Up Pt being seen for a f/u for anxiety meds Encounter Details Date Type Department Care Team (Late st Contact Info) Description 05/24/2023 9:40 AM EST Telemedicine Family Practice [facility] [address] [place] [address] Patricia Edmond CRNP [address] [place] [address] KENNEDY (generalized anxiety disorder)*; Insomnia, unspecified type Allergies No known active allergiesdocumented as of this encounter (statuses as of 05/24/2023) Medications Medication Sig Dispensed Refills Start Date End Date Status Clindamycin Phosphate 1 % External Gel APPLY TO THE AFFECTED AREA(S) TWO TIMES A DAY. 60 g 5 2 Active hydrOXYzine HCl 25 MG Oral TabletIndications :KENNEDY (generalized anxiety disorder) Take 1 Tablet by mouth every 6 hours as needed for Anxiety. 40 Tablet 1 3 Active FLUoxetine HCl 40 MG Oral Capsule (PROzac)Indicatio ns:KENNEDY (generalized anxiety disorder) Take 1 Capsule by mouth in the morning. 90 Capsule 3 4 Active Ondansetron HCl 4 MG Oral Tablet (Zofran)Indicatio ns:Nausea and vomiting, unspecified vomiting type Take 1 Tablet by mouth every 8 hours as needed for Nausea. 20 Tablet 0 3 05/24/19 24 Discontinued(Med ication List Clean Up) Cyclobenzaprine HCl 5 MG Oral Tablet (Flexeril)Indicat ions:Acute intractable tension-type headache Take 1 Tablet by mouth 3 times a day as needed for Muscle spasms. 30 Tablet 0 3 05/24/19 24 Discontinued(Med ication List Clean Up) Citalopram Hydrobromide 20 MG Oral Tablet (CeleXA)Indicatio ns:KENNEDY (generalized anxiety disorder) Week 1: Take one and a half tablet by mouth daily together with prozac. Week 2: Take one tablet by mouth daily together with prozac. Week 3: Take a half tablet by mouth daily together with prozac. Week 4: stop the medication and only take prozac as prescribed. 30 Tablet 1 4 05/24/19 24 Discontinued(Med ication List Clean Up) FLUoxetine HCl 10 MG Oral Capsule (PROzac)Indicatio ns:KENNEDY (generalized anxiety disorder) Week 1: Take one capsule by mouth daily. Week 2: Take two capsules by mouth daily. Week 3: take three capsules by mouth daily. Week 4: Take four capsules by mouth daily. 90 Capsule 1 4 05/24/19 24 Discontinued documented as of this encounter (statuses as of 05/24/2023) Active Problems Problem Noted Date Diagnosed Date KENNEDY (generalized anxiety disorder) 01/26/2020 Insomnia 01/26/2020 documented as of this encounter (statuses as of 05/24/2023) Resolved Problems Problem Noted Date Diagnosed Date [...] any current needs or questions 10/18/2016 Mindi Eldridge, DARIANA 10/18/16 Problem Action Taken Date entered Entered by Date resolved Current needs or questions Patient denies having any current needs or questions 10/22/2016 Khushbu Rihcardson, DARIANA 10/22/16 Acute nonintractable headache 03/05/2016 06/03/2019 Other abnormal Papanicolaou smear of cervix and cervical HPV(795.09) 07/23/2013 03/11/2014 Overview: Abn pap at [facility]- ASCUS + HR HPV; needs colpo 2nd trimester. Completed 09/29/13 , normal first 07/06/2013 12/07/2013 Hearing loss 06/09/2010 08/04/2016 Otalgia 06/09/2010 08/04/2016 Impacted cerumen 06/09/2010 08/04/2016 Personal history of methicil alberta resistant Staphylococcus aureus 06/30/2009 03/11/2014 HORDEOLUM EXTERNUM, RIGHT UPPER LID 08/27/2007 08/04/2016 documented as of this encounter (statuses as of 05/24/2023) Immunizations Name Administration Dates Next Due COVID-19 [...] as of this encounter Progress Notes * Patricia Edmond CRNP - 05/24/2023 10:06 AM EST Images from the original note were not included. History of Present Illness Nataliia Kaur is a 33 year old female that presents for Follow Up (Pt being seen for a f/u for anxiety meds) HPI Here via video visit for follow up on anxiety. At her last visit she was really struggling and we switched her from celexa to prozac and referred her to psychology to discuss therapy. She had no issues with the transition from celexa and prozac and anxiety is much better. Has not noticed any side effects from prozac. Denies SI/HI. Sleep has improved. Occ using hydroxyzine to help but not often. Would like to continue at current dose. Outpatient Medications Marked as Taking for the 05/24/23 encounter (Telemedicine) with Patricia Edmond CRNP Medication Sig FLUoxetine HCl 40 MG Oral Capsule (PROzac) Take 1 Capsule by mouth in the morning. hydrOXYzine HCl 25 MG Oral Tablet Take 1 Tablet by mouth every 6 hours as needed for Anxiety. Clindamycin Phosphate 1 % External Gel APPLY TO THE AFFECTED AREA(S) TWO TIMES A DAY. Physical Exam There were no vitals filed for this visit. Physical Exam Constitutional: General: She is not in acute distress. Neurological: Mental Status: She is alert and oriented to person, place, and time. Psychiatric: Behavior: Behavior normal. Thought Content: Thought content normal. Assessment and Plan KENNEDY (generalized anxiety disorder) Stable on prozac Follow up 1 year or prn if worsening Insomnia, unspecified type Improved Follow up 1 year or prn if worsening Wrap-Up Follow Up: Return if symptoms worsen or fail to improve. Time: I spent a total of 20-29 minutes (exact time 20 mins) on the date of service in preparation, delivery, and documentation of the care provided to Nataliia Kaur excluding any time spent in the performance of separately billed services. Telemedicine: Patient location: HOME. I was in a hospital or clinic location. After connecting through televideo,patient was verified with two unique identifiers. Patient (or authorized legal market survey representative) was then informed that this was a Telemedicine visit and being conducted confidentially over secure lines. Methods to assure confidentiality were taken. Patient acknowledged consent and understanding of pr ivacy and security of the Telemedicine visit. The patient agreed to participate. documented in this encounter Plan of Treatment Health Maintenance Due Date Last Done Comments GARDASIL-HPV IMMUNIZATION SERIES (3 - 3-dose series) 03/29/2015 01/04/2015 (Declined), 12/30/2013 (Declined) COVID-19 Vaccine (3 - 2022- season) 2022 05/28/2020, 05/07/2020 Depression Screening 05/17/2024 05/17/2023 Pap Smear 04/13/2025 04/13/2022, 12/0 09/2015, 08/30/2015, Additional history exists Cervical Cancer [...] as of this encounter Visit Diagnoses Diagnosis KENNEDY (generalized anxiety disorder)- Primary Generalized anxiety disorder Insomnia, unspecified type documented in this encounter Care Teams Education Program Associate Relationship Specialty Start Date End Date Patricia Edmond CRNP [address] [place] [address] PCP - General Nurse Practitioner 02/22/22 documented as of this encounter
--- OUTSIDE RECORDS SUMMARY | 2023-09-25 07:27 | External Medical Summary | Summary of Care ---
Author Name Unknown Organization [facility] Address [address] [facility] [place] [address] Phone [phone] Care Team Providers Care Ops Analyst Name Role Phone Patricia Edmond Primary Care Provider +1- [phone] Reason for Visit * Reason Comments Outpatient Testing Encounter Details Date Type Department Care Team (Late st Contact Info) Description 04/29/2023 1:30 PM EST Laboratory Laboratory [facility] [address] [place] [id number] [facility] [address] [place] [address] Need for hepatitis B vaccination Allergies No known active allergiesdocumented as of this encounter (statuses as of 04/29/2023) Medications Medication Sig Dispensed Refills Start Date End Date Status Clindamycin Phosphate 1 % External Gel APPLY TO THE AFFECTED AREA(S) TWO TIMES A DAY. 60 g 5 10/31/2021 Active Ondansetron HCl 4 MG Oral Tablet (Zofran)Indications :Nausea and vomiting, unspecified vomiting type Take 1 Tablet by mouth every 8 hours as needed for Nausea. 20 Tablet 0 07/31/2022 Active Additional Information Patient not taking.Reported on 04/12/2023 Cyclobenzaprine HCl 5 MG Oral Tablet (Flexeril)Indicatio ns:Acute intractable tension-type headache Take 1 Tablet by mouth 3 times a day as needed for Muscle spasms. 30 Tablet 0 01/19/2023 Active hydrOXYzine HCl 25 MG Oral TabletIndications:G AD (generalized anxiety disorder) Take 1 Tablet by mouth every 6 hours as needed for Anxiety. 40 Tablet 1 03/07/2023 Active Citalopram Hydrobromide 20 MG Oral Tablet (CeleXA)Indications :KENNEDY (generalized anxiety disorder) Week 1: Take one and a half tablet by mouth daily together with prozac. Week 2: Take one tablet by mouth daily together with prozac. Week 3: Take a half tablet by mouth daily together with prozac. Week 4: stop the medication and only take prozac as prescribed. 30 Tablet 1 04/12/2023 Active FLUoxetine HCl 10 MG Oral Capsule (PROzac)Indications :KENNEDY (generalized anxiety disorder) Week 1: Take one capsule by mouth daily. Week 2: Take two capsules by mouth daily. Week 3: take three capsules by mouth daily. Week 4: Take four capsules by mouth daily. 90 Capsule 1 04/12/2023 Active documented as of this encounter (statuses as of 04/29/2023) Active Problems Problem Noted Date Diagnosed Date KENNEDY (generalized anxiety disorder) 01/26/2020 Insomnia 01/26/2020 documented as of this encounter (statuses as of 04/29/2023) Resolved Problems Problem Noted Date Diagnosed Date [...] 2015 Colpo 03/13/16 Pap with co-test at [facility] Hx MRSA infection 03/13/2016 10/23/2016 Overview: Age 17, treated. Suggest follow up with PCP . Hyperemesis gravidarum 03/05/201601/25 Overview: Mat Dizziness 03/05/2016 01/26/2020 Encounter for supervision of [...] trimester. Completed 09/29/13 , normal first 07/06/2013 12/0 07/2013 Hearing loss 06/09/2010 08/04/2016 Otalgia 06/09/2010 08/04/2016 Impacted cerumen 06/09/2010 08/04/2016 Personal history of methicil alberta resistant Staphylococcus aureus 06/30/2009 03/11/2014 HORDEOLUM EXTERNUM, RIGHT UPPER LID 08/27/2007 08/04/2016 documented as of this encounter (statuses as of 04/29/2023) Immunizations Name Administration Dates Next Due COVID-19 [...] Answer Date Recorded PHQ Adult Total Score 0 04/13/2022 Hunger Vital Sign Answer Date Recorded Within the past 12 months, y ou worried that your food would run out before you got the money to buy more. Never true 04/13/19 23 Within the past 12 months, t he food you bought just didn't last and you didn't have money to get more. Never true 04/13/2022 Sex and Gender Information Value Date Recorded Sex Assigned at Female 06/03/2019 10:13 AM EST Gender Identity Female 06/03/2019 10:13 AM EST Sexual Orientation Straight 06/03/2019 10 :13 AM EST Job Start Date Occupation Industry Not on file Not on file Not on file documented as of this encounter Plan of Treatment Upcoming Encounters Date Type Department Care Team (Late st Contact Info) Description 05/17/2023 10:00 AM EST Telemedicine [facility] [address] [place] [address] [facility] [address] [place] [address] 05/24/2023 9:40 AM EST Telemedicine Family Practice [facility] [address] [facility] [place] [address] Patricia Edmond CRNP [address] [facility] [place] [phone] Pending Results Name Type Priority Associated Diagnoses Date /Time HEPATITIS B SURFACE ANTIBODY Lab Routine Need for hepatitis B vaccination 04/29/2023 1:10 PM EST Health Maintenance Due Date Last Done Comments GARDASIL-HPV IMMUNIZATION SERIES (3 - 3-dose series) 03/29/2015 01/04/2015 (Declined), 12/30/2013 (Declined) COVID-19 Vaccine ( - season) 2022 05/28/2020, 05/07/2020 Depression Screening 04/13/2023 04/13/2022 Pap Smear 04/13/2025 04/13/2022, 12/0 09/2015, 08/30/2015, [...] as of this encounter Visit Diagnoses Diagnosis Need for hepatitis B vaccination Need for prophylactic vaccination and inoculation against viral hepatitis documented in this encounter Care Teams Ops Analyst Relationship Specialty Start Date End Date Patricia Edmodn CRNP [address] [place] [address] PCP - General Nurse Practitioner 02/22/22 documented as of this encounter
--- OUTSIDE RECORDS SUMMARY | 2023-09-25 07:27 | External Medical Summary | Summary of Care ---
Author Name Unknown Organization [facility] Address [address] [place] [address] Phone [phone] Care Team Providers Care Strategic Debriefing Specialist Name Role Phone Patricia Edmond Primary Care Provider [phone]- [phone] Reason for Referral * Evaluate & Treat - Unlimited Visits (Within 10 days (routine)) - Authorized Specialty Diagnoses / Procedures Referred By Amari varghese Referred To Contact Psychiatry Diagnoses KENNEDY (generalized anxiety disorder) Patricia Edmond CRNP [address] [place] [address] Referral ID Status Reason Start Date Expiration Date Visits Requested Visits Authorized [id number] Authorized Specialty Services Required 04/12/2023 999 [id number] Question Answer Referral Priority Within 10 days (routine) Where should this appointment be scheduled? [facility] Is this referral for medication management? Yes Referral To [facility] Reason for Referral Anxiety Reason for Visit * Reason Comments Physical-Exam cpe Encounter Details Date Type Department Care Team (Late st Contact Info) Description 04/12/2023 10:00 AM EST Office Visit [facility] [address] [place] [address] Patricia Edmond CRNP [address] [place] [address] KENNEDY (generalized anxiety disorder)* Allergies No known active allergiesdocumented as of this encounter (statuses as of 04/22/2023) Medications Medication Sig Dispensed Refills Start Date [...] 04/12/2023 Cyclobenzaprine HCl 5 MG Oral Tablet (Flexeril)Indicat ions:Acute intractable tension-type headache Take 1 Tablet by mouth 3 times a day as needed for Muscle spasms. 30 Tablet 0 01/19/2023 Active hydrOXYzine HCl 25 MG Oral TabletIndications :KENNEDY (generalized anxiety disorder) Take 1 Tablet by mouth every 6 hours as needed for Anxiety. 40 Tablet 1 03/07/2023 Active Citalopram Hydrobromide 20 MG Oral Tablet (CeleXA)Indicatio [...] Active FLUoxetine HCl 10 MG Oral Capsule (PROzac)Indicatio ns:KENNEDY (generalized anxiety disorder) Week 1: Take one capsule by mouth daily. Week 2: Take two capsules by mouth daily. Week 3: take three capsules by mouth daily. Week 4: Take four capsules by mouth daily. 90 Capsule 1 04/12/2023 Active Citalopram Hydrobromide 40 MG Oral Tablet (CeleXA)Indicatio ns:KENNEDY (generalized anxiety disorder) Take 1 Tablet by mouth in the morning. 30 Tablet 1 03/07/2023 04/12/19 24 Discontinued documented as of this encounter (statuses as of 04/22/2023) Active Problems Problem Noted Date Diagnosed Date KENNEDY (generalized anxiety disorder) 01/26/2020 Insomnia 01/26/2020 documented as of this encounter (statuses as of 04/22/2023) Resolved Problems Problem Noted Date Diagnosed Date [...] 2015 Colpo 03/13/16 [facility] Hx MRSA infection 03/13/2016 10/23/2016 Overview: [...] having any current needs or questions 10/02/2016 Chrisitna Gipson RN 10/02/2016 Problem Action Taken Date [...] as of this encounter (statuses as of 04/22/2023) Immunizations Name Administration Dates Next Due COVID-19 [...] Sign Reading Time Taken Comments Blood Pressure 108/62 04/12/2023 10:13 AM EST Pulse 90 04/12/2023 10:13 AM EST Temperature 36.8 C (98.2 F) 04/12/2023 1 0:13 AM EST Respiratory Rate - - Oxygen Saturation 100% 04/12/2023 10: 13 AM EST Inhaled Oxygen Concentration - - Weight 52.1 kg (114 lb 14.4 oz) 024 10:13 AM EST Height 165.1 cm (5' 5") 04/12/2023 10:1 3 AM EST Body Mass Index 19.12 04/12/2023 10:13 AM EST documented in this encounter Progress Notes * Patricia Edmond CRNP - 04/12/2023 10:15 AM EST Images from the original note were not included. History of Present Illness Nataliia Kaur is a 33 year old female that presents for Physical-Exam (cpe) HPI Here in routine follow up. Anxiety worsening -- celexa not helping. Would like to switch to a new medication. Denies SI/HI Outpatient Medications Marked as Taking for the 04/12/23 encounter (Office Visit) with Patricia Edmond CRNP Medication Sig Citalopram Hydrobromide 20 MG Oral Tablet (CeleXA) Week 1: Take one and a half tablet by mouth daily together with prozac. Week 2: Take one tablet by mouth daily together with prozac. Week 3: Take a half tablet by mouth daily together with prozac. Week 4: stop the medication and only take prozac asprescribed. FLUoxetine HCl 10 MG Oral Capsule (PROzac) Week 1: Take one capsule by mouth daily. Week 2: Take two capsules by mouth daily. Week 3: take three capsules by mouth daily. Week 4: Take four capsules bymouth daily. hydrOXYzine HCl 25 MG Oral Tablet Take 1 Tablet by mouth every 6 hours as needed for Anxiety. Cyclobenzaprine HCl 5 MG Oral Tablet (Flexeril) Take 1 Tablet by mouth 3 times a day as needed for Muscle spasms. Clindamycin Phosphate 1 % External Gel APPLY TO THE AFFECTED AREA(S) TWO TIMES A DAY. Physical Exam Vitals: 04/12/23 1013 Temp: 36.8 C (98.2 F) Pulse: 90 SpO2: 100% BP: 108/62 BMI: 19.12 Physical Exam Vitals reviewed. Constitutional: Appearance: Normal appearance. HENT: Head: Normocephalic and atraumatic. Nose: Nose normal. Mouth/Throat: Mouth: Mucous membranes are moist. Eyes: Extraocular Movements: Extraocular movements intact. Conjunctiva/sclera: Conjunctivae normal. Pupils: Pupils are equal, round, and reactive to light. Cardiovascular: Rate and Rhythm: Normal rate and regular rhythm. Heart sounds: Normal heart sounds. Pulmonary: Effort: Pulmonary effort is normal. Breath sounds: Normal breath sounds. Musculoskeletal: Cervical back: Neck supple. Right lower leg: No edema. Left lower leg: No edema. Lymphadenopathy: Cervical: No cervical adenopathy. Skin: Capillary Refill: Capillary refill takes less than 2 seconds. Findings: No rash. Neurological: Mental Status: She is alert and oriented to person, place, and time. Psychiatric: Behavior: Behavior normal. Thought Content: Thought content normal. Assessment and Plan KENNEDY (generalized anxiety disorder) Recheck 6 weeks Discussed indications for sooner follow up - Citalopram Hydrobromide 20 MG Oral Tablet (CeleXA); Week 1: Take one and a half tablet by mouth daily together with prozac. Week 2: Take one tablet by mouth daily together with prozac. Week 3: Takea half tablet by mouth daily together with prozac. Week 4: stop the medication and only take prozacas prescribed. - FLUoxetine HCl 10 MG Oral Capsule (PROzac); Week 1: Take one capsule by mouth daily. Week 2: Taketwo capsules by mouth daily. Week 3: take three capsules by mouth daily. Week 4: Take four capsulesby mouth daily. - ADULT/PEDS PSYCHIATRY REFERRAL OP Wrap-Up Follow-up: Return in about 6 weeks (around 05/24/2023). | Check-out note: Recheck mood Schedule psych Time: I spent a total of 20-29 minutes (exact time 25 mins) on the date of service in preparation, delivery, and documentation of the care provided to Nataliia Kaur excluding any time spent in the performance of separately billed services. documented in this encounter Nursing Notes * Candace Snow, Student - 04/12/2023 10:11 AM EST The patient has been properly identified by confirmation of name and date of . Chief Complaint Patient presents with Physical-Exam cpe Pt wants to discuss celexa med has been on for 3 plus months. documented in this encounter Plan of Treatment Upcoming Encounters Date Type Department Care Team (Late st Contact Info) Description 05/17/2023 10:00 AM EST Telemedicine [facility] [address] [place] [address] Monica Puentes, [facility] [address] [place] [address] 05/24/2023 9:40 AM EST Telemedicine [facility] [address] [facility] [place] [address] Patricia Ed[facility] [address] [facility] [place] [address] Scheduled Referrals Name Type Priority Associated Diagnoses Orde r Schedule ADULT/PEDS PSYCHIATRY REFERRAL OP Referral Within 10 days (routine) KENNEDY (generalized anxiety disorder) Ordered: 04/12/2023 Health Maintenance Due Date Last Done Comments GARDASIL-HPV IMMUNIZATION SERIES (3 - 3-dose series) 03/29/2015 01/04/2015 (Declined), 12/30/2013 (Declined) COVID-19 Vaccine ( season) 2022 05/28/2020, 05/07/2020 Depression Screening 04/13/2023 [...] (generalized anxiety disorder)- Primary Generalized anxiety disorder documented in this encounter Care Teams Strategic Debriefing Specialist Relationship Specialty Start Date End Date Patricia Edmond CRNP [address] [place] [address] PCP - General Nurse Practitioner 02/22/22 documented as of this encounter
--- OUTSIDE RECORDS SUMMARY | 2023-09-25 07:27 | External Medical Summary ---
Author Name Unknown Address Unknown Organization [id number]:[facility] [place]ly named [facility] [address] [place] [address] Laboratory Report Ordering Provider Test Date Status RIRIEVAN 05/27/2023 11:38:56 Final Observation Date Value Abnormality Reference (Units) Status Streptococcus pyogenes DNA [Presence] in Throat by MARLYS with probe detection 05/27/2023 11:38:56 Negative. No Group A Streptococcus detected by PCR (amplified probe). Negative Final This test was developed and its performance characteristics determined by [facility]. It has not been cleared or approved by the FDA. The laboratory is regulated under CLIA as qualified to perform high- complexity testing. This test is used for clinical purposes. It should not be regarded as investigational or for research. Performing Location [facility] [place] Formerly named [facility] [address] [place] [address]
--- OUTSIDE RECORDS SUMMARY | 2023-09-25 07:27 | External Medical Summary ---
Author Name Unknown Address Unknown Organization [id number]:[facility] [place] - [address] [facility] [address] Laboratory Report Ordering Provider Test Date Status EVAN MENEZES 05/27/2023 11:38:56 Final Observation Date Value Abnormality Reference (Units ) Status SARS Coronavirus 2 05/27/2023 11:38:56 Negative N egative Final No SARS-CoV2 Coronavirus RNA detected by PCR (amplified probe).
This automated test was developed and its performance characteristics determined by [facility]. It has not been cleared or approved by the U.S. Food and Drug Administration (FDA). FDA does not require this test to go thru premarket FDA review. This test is used for clinical purposes. It should not be regarded as investigational or for research. This laboratory is certified under the Clinical Laboratory Improvement Amendments (CLIA) as qualified to perform high complexity clinical laboratory testing.

This test is a nucleic acid amplification test (NAAT), a reverse transcriptase polymerase chain reaction (RT-PCR) test, or a Centers for Disease Control-acceptable equivalent. The test is performed in a high complexity Clinical Laboratory Improvement Amendments-(CLIA) certified laboratory. The test is acceptable for SARS-CoV-2 diagnosis, surveillance, and travel within the [place] and to most countries. Please check with local testing authorities about requirements before travel.

The validation of bronchial specimens, tracheal aspirates, and sputum for this assay was developed and performance characteristics determined by [facility]. The validation of alternate specimen types has not been cleared or approved by the U.S. Food and Drug Administration (FDA). It has been determined that such clearance or approval is not necessary. Influenza virus A RNA [Prese nce] in Specimen by MARLYS with probe detection 05/27/2023 11:38:56 Negative Negative Final No Influenza A RNA detected by PCR (amplified probe) Influenza virus B RNA [Prese nce] in Specimen by MARLYS with probe detection 05/27/2023 11:38:56 Negative Negative Final No Influenza B RNA detected by PCR (amplified probe) Respiratory syncytial virus RNA [Identifier] in Specimen by MARLYS with probe detection 05/27/2023 11:38:56 Negative Negative Final No Respiratory Syncytial Vir us RNA detected by PCR (amplified probe) Performing Location LABORATORY [address] [place] [facility] [address]
--- OUTSIDE RECORDS SUMMARY | 2023-09-25 07:27 | External Medical Summary | Summary of Care ---
Author Name Unknown Organization [facility] Address [address] [place] [address] Phone [phone] Care Team Providers Care Pressing Machine Operator Name Role Phone Patricia Edmond Primary Care Provider [phone]- [phone] Reason for Visit * Reason Comments Anxiety * Evaluate & Treat - Unlimited Visits (Within 10 days (routine)) - Authorized Specialty Diagnoses / Procedures Referred By Amari varghese Referred To Contact Psychiatry Diagnoses KENNEDY (generalized anxiety disorder) Patricia Edmond CRNP [address] [place] [address] Referral ID Status Reason Start Date Expiration Date Visits Requested Visits Authorized [id number] Authorized Specialty Services Required 04/12/[phone] Encounter Details Date Type Department Care Team (Late st Contact Info) Description 05/17/2023 10:00 AM [facility] [address] [place] [address] Monica Puentes, [facility] [address], [place] [id number] Anxiety disorder, unspecified type* Allergies No known active allergiesdocumented as of this encounter (statuses as of 05/17/2023) Medications Medication Sig Dispensed Refills Start Date [...] as prescribed. 30 Tablet 1 04/12/2023 Active Additional Information Patient not taking.Reported on 05/17/2023 FLUoxetine HCl 10 MG Oral Capsule (PROzac)Indications :KENNEDY (generalized anxiety disorder) Week 1: Take one capsule by mouth daily. Week 2: Take two capsules by mouth daily. Week 3: take three capsules by mouth daily. Week 4: Take four capsules by mouth daily. 90 Capsule 1 04/12/2023 Active documented as of this encounter (statuses as of 05/17/2023) Active Problems Problem Noted Date Diagnosed Date KENNEDY (generalized anxiety disorder) 01/26/2020 Insomnia 01/26/2020 documented as of this encounter (statuses as of 05/17/2023) Resolved Problems Problem Noted Date Diagnosed Date [...] 2015 Colpo 03/13/16 Pap with co-test at [facility] Hx MRSA infection 03/13/2016 10/23/2016 Overview: Age [...] any current needs or questions 10/22/2016 Khushbu Richardson, DARIANA 10/22/16 Acute nonintractable headache 03/05/2016 06/03/2019 [...] as of this encounter (statuses as of 05/17/2023) Immunizations Name Administration Dates Next Due COVID-19 [...] Passive Smoke Exposure: Current Smokeless Tobacco: Never Tobacco Cessation:Counseling Given: Not Answered Alcohol Use Standard Drinks/Week Comments Yes 0 [...] as of this encounter Progress Notes * Monica Puentes, COFFEE [employer]ER - 05/17/2023 10:04 AM EST Images from the original note were not included. Psychiatry Intake Assessment Patient location: HOME. I was not in a hospital or clinic location. After connecting through televideo, patient was verified with two unique identifiers. 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 Methods to assure confidentiality were taken. Patient acknowledged consent and understanding of privacy and security of the Telemedicine visit. The patient agreed to participate. Provider reviewed elements of Outpatient Services Description including limits of confidentiality, how to contact the department, risks and benefits of treatment and consent for treatment. Patient is unable to sign acknowledgment receiving form. Signature will be obtained when Covid 19 crisis has passed and in person services resume. For [facility] members, Encounter Form unable to be signed, signature exempt - Telehealth, and will beobtained when Covid 19 crisis has passed and in person services resume. Start Time: 1004 Stop Time: 1028 Total Time: 24 minutes History of Present Illness Reason for Referral: Nataliia Kaur is 33 year old. Referred by [facility] Patricia Edmond CRNP for Anxiety Brief History of Present Illness: Patient reports experiencing "We were switching meds a lot and I wasn't doing well" "But I'm doing much better since I saw my doctor. I feel much better now" Endorses active MH sxs: "feel better now because I changed to Prozac"; some lingering "anxious"; "nervousness"; "worried all the time" and difficulty controlling such; hard to relax; tension; 'what if' & worst case scenario thinking; since "I was a teenager". Pt explains since referral was placed her & PCP had started titration off celexa adding prozac and Pt now completely off celexa. States sxs are better controlled and is achieving relief compared to a little over a month ago. H/o panic attacks although not often lately H/O SIB by superficially cutting 15-18 y/o; denies intent; denies resulting in hospitalizations/ medical care Potential causes/stressors/trauma include: familial issues; 2 young kids; day to day life; h/o childhood trauma (undisclosed); h/o SIB Patient's goal is "I want to see positive changes and not be so nervous" Screening Questionnaires: 11/25/2020 04/13/2022 05/17/2023 PSYCH QUESTIONNAIRES TOTAL Adult PHQ-9 Total Score 0 0 1 GAD7= 12 [place] Suicide Severity Rating Scale Results 05/17/2023 10:10 [place] SUICIDE SEVERITY RATING SCALE (C-SSRS) Have you wished you were or wished you could go to sleep and not wake up? (In the Past Month or Since Last Visit) No Have you had any actual thoughts of killing yourself? (In the Past Month or Since Last Visit) No Have you been thinking about how you might do this? (In the Past Month or Since Last Visit) No Have you had thoughts and had some intention of acting on them? (In the Past Month or Since Last Visit) No Have you started to work out or worked out the details of how to kill yourself? Do you intend to carry out this plan? (In the Past Month or Since Last Visit) No Have you ever done anything, started to do anything, or prepared to do anything to end your life? (Lifetime) No Was this within the past 3 months? No Level of Risk No Risk Identified Protective Factors Social Support/Family;Future Plans;Hopeful attitude and or beliefs;Supervision and monitoring available;Access to appropriate services;Willing to participate in less restrictive means of help;Identifies reasons for living;Help-Seeking Behaviors;Cares about job/school Risk Factors History of self-harm;History of Depression;Anxiety;History of Trauma SISQ - How many times in the past year have you used an illegal drug or used a prescription medicine for non-medical reasons? 0 How many times in the past year have you had X or more drinks in a day? 0 (x=5 for men and 4 for women) Past History The patient's past history was reviewed and updated. Past Psychiatry History: Are you currently being treated for a mental health or substance use condition? Yes: Name of Treating Clinician: PCP recently tapered from celexa to Prozac Ever been treated as an outpatient (such as a doctor's or therapist's office or a clinic) for a mental health or substance use condition? Yes prior meds Ever been hospitalized for a mental health or substance use condition? No Ever been to the emergency room for a mental health or substance use condition? No Have you overdosed in the last month? No Mental Status Exam Appearance: within normal limits, age-appropriate, and casually dressed Behavior: cooperative; appears a bit anxious Speech: normal pitch, normal rate, and normal volume Mood: "anxious" Affect: mood congruent Thought Process: within normal limits Thought Content: Delusions: No Hallucinations: No Obsessions: No Homicidal: No Suicidal: No Sensorium: alert and oriented to person, place, time and situation Cognition: grossly intact Insight: fair Judgment: fair Assessment and Plan Diagnostic Impression: Diagnoses listed below are provisional and further assessment and differential diagnosis is needed. ICD-10-CM 1. Anxiety disorder, unspecified type F41.9 Recommendations/Plan: Full Treatment plan will be deferred to the clinician to whom the patient has been assigned. Individual (general) psychotherapy and Patient will return to PCP for medication follow-up Pt may benefit from ind therapy as adjunct tx. Pt will continue adhering to current pharmacotherapy & f/u as indicated by PCP given newly started med w/ positive response. Consider psychiatry should sxs exacerbate. Pt declines therapy at present but may call back if becomes amenable. Pt verbalizes an understanding of agrees w/ aforementioned. Interactive Complexity: did not involve interactive complexity. documented in this encounter Plan of Treatment Upcoming Encounters Date Type Department Care Team (Late st Contact Info) Description 05/24/2023 9:40 AM EST Telemedicine Family Practice [facility] [address] [place] [address] Patricia Edmond CRNP [address] [place] [address] Scheduled Referrals Name Type Priority Associated Diagnoses [...] as of this encounter Visit Diagnoses Diagnosis Anxiety disorder, unspecified type- Primary documented in this encounter Care Teams Pressing Machine Operator Relationship Specialty Start Date End Date Patricia Edmond CRNP [address] [place] [address] PCP - General Nurse Practitioner 02/22/22 documented as of this encounter
--- OUTSIDE RECORDS SUMMARY | 2023-09-25 07:27 | External Medical Summary | Summary of Care ---
Author Name Unknown Organization [facility] Address [address] [place] [address] Phone [phone] Care Team Providers Care Work Checker Name Role Phone Patricia Edmond Primary Care Provider [phone] Reason for Visit * Reason Comments Sore Throat Congestion Encounter Details Date Type Department Care Team ([facility] st Contact Info) Description 05/27/2023 11:30 AM [facility] Visit [address] [id number] Adal Samuels PA-C [address] [place] [address] Laryngitis*; Acute pharyngitis, unspecified etiology Allergies No known active allergiesdocumented as of [...] 2015 Colpo 03/13/16 Pap with co-test at [facility] Hx MRSA infection 03/13/2016 10/23/2016 [...] mRNA, LNP-s, No Pre serve, 2-Dose Series ([employer]) 05/28/2020,05/07/2020 DTaP Dipth/Tet/Acell Pertussis (Infanrix), Peds 06/04/1995,09/15/1991,1990, [...] Sign Reading Time Taken Comments Blood Pressure 98/62 05/27/2023 11:25 AM EST Pulse 114 05/27/2023 11:25 AM EST Temperature 36.9 C (98.4 F) 05/27/2023 11:[address] Respiratory Rate 18 05/27/2023 11:25 AM EST Oxygen Saturation 98% 05/27/2023 11:25 AM EST Inhaled Oxygen Concentration - - Weight 50.8 kg (112 lb) 05/27/2023 11:25 AM EST Height - - Body Mass Index 18.64 04/12/2023 10:13 AM EST documented in this encounter Progress Notes * Adal Samuels PA-C - 05/27/2023 11:41 AM EST [facility] Basic Exam HPI: Nataliia Kaur is a 33 year old year old female who presents for evaluation of ur congestion, body aches and sore throat for three days. Patient states she woke up today with a loss of voice. Patient has not taken anything for symptoms. Works in a [employer] office where was recently exposed to flu. PAST MEDICAL HISTORY: Past Medical History: Diagnosis Date Anxiety Depression HX OF MRSA 06/30/2009 Moderate dysplasia of cervix (TERESA II) 03/13/2016 Colpo 03/13/16 Pap with co-test at [facility] Panic attack Self-injurious behavior Sleeping difficulties Past Surgical History: Procedure Laterality Date DENTAL SURGERY PROCEDURE NEC wisdom teeth Social History Tobacco Use Smoking status: Never Passive exposure: Current Smokeless tobacco: Never Substance Use Topics Alcohol use: Yes Comment: social Vaping/E-Cigarette Use Vaping/E-Cigarette Use Never User Vaping/E-Cigarette Substances Vaping/E-Cigarette Devices Patient Active Problem List Diagnosis Code KENNEDY (generalized anxiety disorder) F41.1 Insomnia G47.00 Review of patient's allergies indicates: No Known Allergies Current Outpatient Medications Medication Sig Dispense Refill Clindamycin Phosphate 1 % External Gel APPLY TO THE AFFECTED AREA(S) TWO TIMES A DAY. 60 g 5 hydrOXYzine HCl 25 MG Oral Tablet Take 1 Tablet by mouth every 6 hours as needed for Anxiety. 40 Tablet 1 FLUoxetine HCl 40 MG Oral Capsule (PROzac) Take 1 Capsule by mouth in the morning. 90 Capsule 3 No current facility-administered medications for this visit. Nursing Notes and Vital Signs reviewed. BP 98/62 | Pulse 114 | Temp 36.9 C (98.4 F) (Tympanic) | Resp 18 | Wt 50.8 kg (112 lb) | LMP 05/01/2023 | SpO2 98% | BMI 18.64 kg/m | BSA 1.53 m Physical Exam Vitals and nursing note reviewed. Constitutional: General: She is awake. She is not in acute distress. Appearance: Normal appearance. She is not ill-appearing or toxic-appearing. HENT: Head: Normocephalic. Right Ear: Hearing, tympanic membrane, ear canal and external ear normal. Left Ear: Hearing, tympanic membrane, ear canal and external ear normal. Nose: Nose normal. Mouth/Throat: Lips: [place]. Mouth: Mucous membranes are moist. Pharynx: Oropharynx is clear. Uvula midline. Pulmonary: Effort: Pulmonary effort is normal. Breath sounds: Normal breath sounds and air entry. Neurological: Mental Status: She is alert and easily aroused. Psychiatric: Behavior: Behavior is cooperative. ASSESSMENT: Laryngitis (Primary) - GROUP A STREP PCR - INFLUENZA A/B RSV SARS-COV2,PCR - RETURN TO WORK OR SCHOOL Acute pharyngitis, unspecified etiology - GROUP A STREP PCR - INFLUENZA A/B RSV SARS-COV2,PCR - RETURN TO WORK OR SCHOOL Plan: Provided helpful information on how to manage symptoms at home. Will 4 plex and strep culture. Patient goals for plan of care were discussed with Follow up with PCP or seek emergency medical attention as needed if symptoms worsen, evolve, or fail to improve. Patient demonstrates understanding of the visit, course of treatment, and instructions. All questions were answered and patient agrees to plan of care. Adal Samuels PA-C [address] [address] documented in this encounter Nursing Notes * Maggie Alcantara CMA - 05/27/2023 11:23 AM EST Nursing Notes: CC: Chief Complaint Patient presents with Sore Throat Congestion Brief Hx: Patient complains of congestion, sore throat, loss of voice, body aches Duration/Onset: OTC meds: Accompanied by: self documented in this encounter Miscellaneous Notes * Pt Handout (on AVS) - Adal Samuels PA-C - 05/27/2023 11:39 AM EST Images from the original note were not included. [id number] Pharyngitis (Sore Throat), Report Pending Pharyngitis (sore throat) is often due to a virus. It can also be caused by strep (streptococcus) bacteria. This is often called strep throat. Both viral and strep infections can cause throat pain that is worse when swallowing, aching all over, headache, and fever. Both types of infections are contagious. They may be spread by coughing, kissing, or touching others after touching your mouth or nose. A test has been done to find out if you or your child have strep throat. Often a rapid strep test can be done that gives immediate results and treatment can begin right away. A throat culture may also be done. The culture results take longer. If you have a virus, the culture results will be negative. The facility will call with your culture results. Call this facility or your healthcare provider if you were not given your rapid test results for strep. If a test is positive for strep infection, you will need to take an antibiotic. An antibiotic is a medicine used to treat a bacterial infection. A prescription can be called into your pharmacy. Or a written copy will be given to you at that time. If both tests are negative, you likely have a virus, usually viral pharyngitis. This does not need to be treated with antibiotics. Until you receive the results of the rapid strep test or the throat culture, you should stay home from work. If your child is being tested, they should stay home from school. Home care Rest at home. Drink plenty of fluids so you won't get dehydrated. If the test is positive for strep, you or your child should not go to work or school for the first 24 hours of taking the antibiotics or as directed by the healthcare provider. After this time, you or your child will not be contagious. You or your child can then return to work or school when feeling better or as directed by this facility or your healthcare provider. Use the antibiotic medicine (often penicillin or amoxicillin) for the full 10 days or as directed by the healthcare provider. Don't stop the medicine even if you or your child feel better. This isvery important to make sure the infection is fully treated. It's also important to prevent medicine-resistant germs from growing. Treatment for 10 days is also the best way to prevent rheumatic fever, which affects the heart and other parts of the body. If you or your child were given an antibioticshot, the healthcare provider will tell you if additional antibiotics are needed. Use throat lozenges or numbing throat sprays to help reduce pain. Gargling with warm saltwater will also help reduce throat pain. Dissolve 1/2 teaspoon of salt in 1 glass of warm water. Discuss this treatment with your healthcare provider. Children can sip on juice or ice pops. Children 5 years and older can also suck on a lollipop orhard candy. Don't eat salty or spicy foods or give them to your child. These can irritate the throat. Other medicine for a child: You can give your child acetaminophen for fever, fussiness, or discomfort. In babies over 6 months of age, you may use ibuprofen instead of acetaminophen. If your child has chronic liver or kidney disease or ever had a stomach ulcer or gastrointestinal bleeding, talk with your child?s healthcare provider before giving these medicines. Never give aspirin to a child or teen. It could cause a rare but serious condition called Smita syndrome. Always contact your child's healthcare provider before giving your child taeq-[id number]-[id number] medicines for the first time. Other medicine for an adult: You may use acetaminophen or ibuprofen to control pain or fever, unless another medicine was prescribed for this. If you have chronic liver or kidney disease or ever had a stomach ulcer or gastrointestinal bleeding, talk with your healthcare provider before using these medicines. Follow-up care Follow up with your healthcare provider or our staff if you or your child don't feel or get better within 72 hours or as directed. When to get medical advice Call your healthcare provider right away if any of these occur: You or your child have a fever of 100.4F (38C) or higher, or as advised by your provider (see "How to take a child's temperature" below) Ear pain, sinus pain, or headache that is new or getting worse Painful lumps in the back of neck Stiff or swollen neck Lymph nodes are getting larger or swelling of the neck Can?t open mouth wide due to throat pain Signs of dehydration, such as very dark urine or no urine or sunken eyes Noisy breathing Muffled voice New rash Symptoms get worse New symptoms Call 911 Call 911 if any of these occur: Can't swallow, especially saliva, with a lot of drooling Trouble breathing Wheezing Feeling faint or dizzy Can't talk Feeling of doom Prevention Here are steps you can take to help prevent an infection: Keep good hand washing habits. Don?t have close contact with people who have sore throats, colds, or other upper respiratory infections. Don?t smoke and stay away from secondhand smoke. Stay up to date with of your vaccines. How to take a child's temperature Use a digital thermometer to check your child?s temperature. Don?t use a mercury thermometer. Thereare different kinds and uses of digital thermometers. They include: Rectal. For children younger than 3 years, a rectal temperature is the most accurate. Forehead (temporal). This works for children age 3 months and older. If a child under 3 months old has signs of illness, this can be used for a first pass. The provider may want to confirm with a rectal temperature. Ear (tympanic). Ear temperatures are accurate after 6 months of age, but not before. Armpit (axillary). This is the least reliable but may be used for a first pass to check a child of any age with signs of illness. The provider may want to confirm with a rectal temperature. Mouth (oral). Don?t use a thermometer in your child?s mouth until they are at least 4 years old. Use a rectal thermometer with care. Follow the product maker?s directions for correct use. Insert it gently. Label it and make sure it?s not used in the mouth. It may pass on germs from the stool. Ifyou don?t feel OK using a rectal thermometer, ask the healthcare provider what type to use instead.When you talk with any healthcare provider about your child?s fever, tell them which type you used. Last Reviewed Date: 12/07/202119991407-3726 [employer] All rights reserved. This information is not intended as a substitute for professional medical care. Always follow your healthcare professional's instructions. * Pt Handout (on AVS) - Adal Samuels PA-C - 05/27/2023 11:39 AM EST Images from the original note were not included. [id number] Laryngitis Laryngitis is an inflammation of the voice box (larynx). Symptoms include a hoarse (scratchy) voiceor your voice may be gone for a few days or longer. This may be caused by a viral illness, such as a head or chest cold. It may also be due to overuse and strain of your voice. Smoking, drinking alcohol, acid reflux, allergies, or inhaling harsh chemicals may also lead to symptoms. This condition will usually go away in 1 to 2 weeks. Home care Rest your voice until it recovers. Talk as little as possible. If your symptoms are severe, restat home for a day or so. Moist air may help your symptoms. Try breathing cool steam from a humidifier or vaporizer or breathe air from a steamy shower. Drink plenty of fluids to stay well hydrated. Don't smoke. Ask your healthcare provider for resources to help you quit. Follow-up care Follow up with your healthcare provider or this facility if you are not better after 1 week. If your hoarse voice lasts more than 2 weeks, you may need to see an bill hiker. This is a healthcare provider specialist who treats diseases and disorders of the ear, nose, and throat (ENT). Seeing this provider is especially important if you have a history of alcohol or tobacco use. When to get medical advice Contact your healthcare provider right away if you have any of the following: Symptoms that get worse Severe pain with swallowing Trouble opening your mouth Neck swelling, neck pain, or trouble moving your neck Fever of 100.4F (38.C) or higher, or as directed by your healthcare provider Symptoms that do not go away in 2 weeks Call 911 Call 911 if you have any of the following: Noisy breathing or trouble breathing Drooling or not able to swallow Not able to talk Feeling dizzy or lightheaded Last Reviewed Date: 03/08/202219992744-5690 [employer] All rights reserved. This information is not intended as a substitute for professional medical care. Always follow your healthcare professional's instructions. documented in this encounter Plan of Treatment Pending Results Name Type Priority Associated Diagnoses Date /Time GROUP A STREP PCR Lab STAT Laryngitis Acute pharyngitis, unspecified etiology 05/27/2023 11:38 AM EST INFLUENZA A/B RSV SARS-COV2,PCR Lab STAT Laryngitis Acute pharyngitis, unspecified etiology 05/27/2023 11:38 AM EST Health Maintenance Due Date Last Done [...] as of this encounter Visit Diagnoses Diagnosis Laryngitis- Primary Acute laryngitis, without mention of obstruction Acute pharyngitis, unspecified etiology documented in this encounter Care Teams Work Checker Relationship Specialty Start Date End Date Patricia Edmond CRNP [address] [id number] PCP - General Nurse Practitioner 02/22/22 documented as of this encounter
[2023-09-25] MEDS ORDERED: CYCLOBENZAPRINE HCL 10 MG TAB PO PRN (11:28)
[2023-09-25] MEDS: LORazepam 0.5 MG TAB PO ONE (12:20)
[2023-09-25] MEDS ORDERED: LORazepam 0.5 MG TAB PO PRN (13:16)
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
[2023-09-25] MEDS: LORazepam 1 MG TAB PO SCH (21:39)
[2023-09-25] MEDS: ARIPiprazole 5 MG TAB PO SCH (21:40)
[2023-09-25] MEDS: FLUoxetine HCL 20 MG CAP PO SCH (21:41)
[2023-09-26] MEDS: LORazepam 0.5 MG TAB PO SCH (10:57)
--- NOTE | 2023-09-26 14:27 | Psychiatric Progress Note ---
Date of Service September 26, 2023 Impression / Recommendations Impression SHU DA SILVA is a 33-year-old white female history of MDD, anxiety who was brought in by police for suicidal ideation in the context of marital problems ( having affair, separation). and was admitted on 09/25/23 00:01 on a 201 voluntary commitment for suicidal ideation. A: Patient distressed from recent separation with . Emotionally distraught and presents physical anxiety symptoms. Rose positive screener for borderline PD. Will schedule as needed lorazepam during the day for anxiety. 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 Overall, I spent a total of 45 minutes with this case including review of chart records, nursing report, review of lab work, direct evaluation of the patient at bedside, counseling the patient, multidisciplinary team meeting, orders, and documentation in the electronic health record. (1) Major depressive disorder, recurrent episode, moderate with anxious distress: (2) Borderline personality disorder: (3) Marital conflict involving divorce: (4) Screening for posttraumatic stress disorder (PTSD) negative: (5) Cannabis abuse: (6) History of starvation: Plan 09/26/2023: Start lorazepam 0.5 mg twice daily as needed for anxiety. Continue other medications and treatment plan. 09/25/2023: Continue home Flexeril as needed for anxiety related muscle spasms. Continue home fluoxetine 40 mg daily. Start aripiprazole 2.5 mg at bedtime. Start lorazepam 1 mg at bedtime. Inventory Assets Strengths: responsible for children, insight into conditions Needs: poor family support, trauma support Suicide Risk Level Suicide Risk Level: High-Moderate (q15 min suicide checks) Risk Factors Assessment Male: No : No Do You Have Access To A Gun?: Yes (husbands are in the house) Health Problems: No Mental Health Diagnoses: Yes Substance Use Disorders: No Previous Attempt: Yes Family History of Suicide: No Previous Psychiatric Hospitalization: No Hopelessness: Yes Protective Factors Assessment Lutheran Beliefs: Yes : Yes Responsible for Young Children: Yes Employed: Yes Stable Relationships: No Supportive Family: No Good Rapport with Provider: Yes Absence of Any Risk Factors Above: No Interval History Identifying Information SHU DA SILVA is a 33-year-old white female history of MDD, anxiety who was brought in by police for suicidal ideation in the context of marital problems ( having affair, separation). and was admitted on 09/25/23 00:01 on a 201 voluntary commitment for suicidal ideation. Chief Complaint Anxiety, hopelessness. Review of Systems Sleep Information Total Hours of Sleep: 6.5 Sleep Comments: Admitted overnight Meal Information Percent Meal Consumed - Breakfast: 5 Percent Meal Consumed - Lunch: 100 Percent Meal Consumed - Dinner: 25 Subjective Subjective Patient was seen & assessed and interval progress reviewed with nursing and social work Patient appears restless, visibly anxious unable to sit still and tearful. Feels unsure of how to navigate her life when from , who will take care of the kids, how she will go back to work, what she will tell work. Appears extremely distressed. Spoke to her children yesterday and was crying on the phone with them and they were crying as well. She reports sleeping well with the nightly Ativan. She denies suicidal ideation however reports wishing this would all end. Wants to live for her children. Finding it difficult to cope. Provided reassurance. Discussed the potential for FMLA and how to navigate. Presented rose positive screening on [place] instrument for BPD. Physical Exam Mental Examination Appearance: Disheveled Eye Contact: Diverts Contact Motor Behavior: Restless Speech: Soft Mood: Sad and Crying Affect: Congruent Thought Process: Intact and Linear Thought Content: Intact Hallucinations: None Insight: Fair Judgement: Fair Vital Signs (Past 24 Hours) Last Vital Signs Temp 37 C 09/26/23 06:40 Pulse 106 H 09/26/23 06:41 Resp 16 09/26/23 06:40 BP 110/76 09/26/23 06:41 Pulse Ox 98 09/25/23 01:24 O2 Del Method Room Air 09/25/23 01:24 Results & Data ([facility]) Current Inpatient Medications Current Inpatient Medications: Current Inpatient Medications Acetaminophen (Acetaminophen 325 Mg Tab) 650 mg PO Q4H PRN PRN Reason: Headache or Minor Fever Stop: 10/25/23 01:08 Al Hydrox/Mg Hydrox/Simethicone (Aluminum/Magnesium Susp 30 Ml Udc) 30 ml PO Q4H PRN PRN Reason: GI Upset Stop: 10/25/23 01:08 Aripiprazole (Aripiprazole 5 Mg Tab) 2.5 mg PO HS SOLEDAD Stop: 10/25/23 21:59 Last Admin: 09/25/23 21:40 Dose: 2.5 mg Bismuth Subsalicylate (Bismuth Subsalicylate Liqd 236 Ml) 15 ml PO PRN PRN PRN Reason: Loose Stool Stop: 10/25/23 01:08 Cyclobenzaprine HCl (Cyclobenzaprine Hcl 10 Mg Tab) 10 mg PO DAILY PRN PRN Reason: Muscle Spasm Stop: 10/25/23 11:27 Fluoxetine HCl (Fluoxetine Hcl 20 Mg Cap) 40 mg PO HS SOLEDAD Stop: 10/25/23 21:59 Last Admin: 09/25/23 21:41 Dose: 40 mg Hydroxyzine HCl (Hydroxyzine Hcl 25 Mg Tab) 50 mg PO HSZ PRN PRN Reason: Insomnia Stop: 10/25/23 01:08 Last Admin: 09/25/23 02:02 Dose: 50 mg Hydroxyzine HCl (Hydroxyzine Hcl 25 Mg Tab) 25 mg PO Q4H PRN PRN Reason: Anxiety Stop: 10/25/23 01:08 Lorazepam (Lorazepam 1 Mg Tab) 1 mg PO HS SOLEDAD Stop: 10/25/23 21:59 Last Admin: 09/25/23 21:39 Dose: 1 mg Lorazepam (Lorazepam 0.5 Mg Tab) 0.5 mg PO DAILY PRN PRN Reason: Anxiety Stop: 10/25/23 13:15 Lorazepam (Lorazepam 0.5 Mg Tab) 0.5 mg PO BID@0800,1400 SOLEDAD Stop: 10/26/23 10:19 Last Admin: 09/26/23 14:10 Dose: 0.5 mg Magnesium Hydroxide (Magnesium Hydroxide Susp 30 Ml Udc) 30 ml PO DAILY PRN PRN Reason: Constipation Stop: 10/25/23 01:08 Clindamycin Gel - (Patient's Own Med) 1 each TOP BID SOLEDAD Stop: 10/26/23 08:59 Last Admin: 09/26/23 09:02 Dose: 1 appln Sodium Chloride (Sodium Chloride 0.65% Na Soln 45 Ml ([place])) 1 - 2 sprays NA PRN PRN PRN Reason: Nasal Dryness/Congestion Stop: 10/25/23 01:08 Mental Health & Subst Abuse Tx Therapist Name of Therapist: [facility] Sliver Cutter Name of Sliver Cutter: N/A
[2023-09-27 13:11] LABS: Marijuana Quant, GCMS Urine 426 ng/mL (<5)
--- NOTE | 2023-09-27 14:08 | Psychiatric Progress Note ---
Date of Service September 27, 2023 Impression / Recommendations Impression SHU DA SILVA is a 33-year-old white female history of MDD, anxiety who was brought in by police for suicidal ideation in the context of marital problems ( having affair, separation). and was admitted on 09/25/23 00:01 on a 201 voluntary commitment for suicidal ideation. A: Patient distraught about recent break-up with . Anxious about future planning. Pending [facility] paperwork. Tolerating scheduled anxiety medications well with less physical symptoms; plan to decrease dose in the coming days. Educated patient about her diagnoses and use of screening instrument. Overall, I spent a total of 45 minutes with this case including review of chart records, nursing report, review of lab work, direct evaluation of the patient at bedside, counseling the patient, multidisciplinary team meeting, orders, and documentation in the electronic health record. (1) Major depressive disorder, recurrent episode, moderate with anxious distress: (2) Borderline personality disorder: (3) Marital conflict involving divorce: (4) Screening for posttraumatic stress disorder (PTSD) negative: (5) Cannabis abuse: (6) History of starvation: Plan 09/27/2023: Continue medications and treatment plan. 09/26/2023: Start lorazepam 0.5 mg twice daily as needed for anxiety. Continue other medications and treatment plan. 09/25/2023: Continue home Flexeril as needed for anxiety related muscle spasms. Continue home fluoxetine 40 mg daily. Start aripiprazole 2.5 mg at bedtime. Start lorazepam 1 mg at bedtime. Inventory Assets Strengths: responsible for children, insight into conditions Needs: poor family support, trauma support Suicide Risk Level Suicide Risk Level: High-Moderate (q15 min suicide checks) Risk Factors Assessment Male: No : No Do You Have Access To A Gun?: Yes (husbands are in the house) Health Problems: No Mental Health Diagnoses: Yes Substance Use Disorders: No Previous Attempt: Yes Family History of Suicide: No Previous Psychiatric Hospitalization: No Hopelessness: Yes Protective Factors Assessment Islam Beliefs: Yes : Yes Responsible for Young Children: Yes Employed: Yes Stable Relationships: No Supportive Family: No Good Rapport with Provider: Yes Absence of Any Risk Factors Above: No Interval History Identifying Information SHU DA SILVA is a 33-year-old white female history of MDD, anxiety who was brought in by police for suicidal ideation in the context of marital problems ( having affair, separation). and was admitted on 09/25/23 00:01 on a 201 voluntary commitment for suicidal ideation. Chief Complaint Hopelessness Review of Systems Sleep Information Total Hours of Sleep: 7 Sleep Comments: HS Ativan Meal Information Percent Meal Consumed - Breakfast: 25 Percent Meal Consumed - Lunch: 50 Percent Meal Consumed - Dinner: 50 Subjective Subjective Patient was seen & assessed and interval progress reviewed with treatment team nursing and social work Patient complains of anger due to the recent break-up. She is tearful. Reports being able to see a future but worried about responsibilities. Contacted her colleague about contacting for [place] paperwork. Has been in touch with her children and they are engaging in many activities. Reassured. Complains of hopelessness. Denies suicidal ideation. Patient asked about borderline per sonality screener; educated, reassured. Physical Exam Mental Examination Appearance: Disheveled Eye Contact: Diverts Contact Motor Behavior: Restless Speech: Soft Mood: Sad and Crying Affect: Congruent Thought Process: Intact and Linear Thought Content: Intact Hallucinations: None Insight: Fair Judgement: Fair Vital Signs (Past 24 Hours) Last Vital Signs Temp 37.1 C 09/27/23 06:34 Pulse 103 H 09/27/23 06:34 Resp 16 09/27/23 06:34 BP 116/71 09/27/23 06:34 Pulse Ox 98 09/25/23 01:24 O2 Del Method Room Air 09/25/23 01:24 Results & Data ([facility]) Laboratory Results Laboratory Results - last 24 hr 09/24/23 20:40 U Marijuana THC Carboxy 426 H Drug Screen Comment SEE NOTE Current Inpatient Medications Current Inpatient Medications: Current Inpatient Medications Acetaminophen (Acetaminophen 325 Mg Tab) 650 mg PO Q4H PRN PRN Reason: Headache or Minor Fever Stop: 10/25/23 01:08 Al Hydrox/Mg Hydrox/Simethicone (Aluminum/Magnesium Susp 30 Ml Udc) 30 ml PO Q4H PRN PRN Reason: GI Upset Stop: 10/25/23 01:08 Aripiprazole (Aripiprazole 5 Mg Tab) 2.5 mg PO HS SOLEDAD Stop: 10/25/23 21:59 Last Admin: 09/26/23 21:31 Dose: 2.5 mg Bismuth Subsalicylate (Bismuth Subsalicylate Liqd 236 Ml) 15 ml PO PRN PRN PRN Reason: Loose Stool Stop: 10/25/23 01:08 Cyclobenzaprine HCl (Cyclobenzaprine Hcl 10 Mg Tab) 10 mg PO DAILY PRN PRN Reason: Muscle Spasm Stop: 10/25/23 11:27 Fluoxetine HCl (Fluoxetine Hcl 20 Mg Cap) 40 mg PO HS SOLEDAD Stop: 10/25/23 21:59 Last Admin: 09/26/23 21:32 Dose: 40 mg Hydroxyzine HCl (Hydroxyzine Hcl 25 Mg Tab) 50 mg PO HSZ PRN PRN Reason: Insomnia Stop: 10/25/23 01:08 Last Admin: 09/25/23 02:02 Dose: 50 mg Hydroxyzine HCl (Hydroxyzine Hcl 25 Mg Tab) 25 mg PO Q4H PRN PRN Reason: Anxiety Stop: 10/25/23 01:08 Lorazepam (Lorazepam 1 Mg Tab) 1 mg PO HS SOLEDAD Stop: 10/25/23 21:59 Last Admin: 09/26/23 21:36 Dose: 1 mg Lorazepam (Lorazepam 0.5 Mg Tab) 0.5 mg PO BID@0800,1400 SOLEDAD Stop: 10/26/23 10:19 Last Admin: 09/27/23 13:35 Dose: 0.5 mg Magnesium Hydroxide (Magnesium Hydroxide Susp 30 Ml Udc) 30 ml PO DAILY PRN PRN Reason: Constipation Stop: 10/25/23 01:08 Clindamycin Gel - (Patient's Own Med) 1 each TOP BID SOLEDAD Stop: 10/26/23 08:59 Last Admin: 09/27/23 08:51 Dose: 1 appln Sodium Chloride (Sodium Chloride 0.65% Na Soln 45 Ml ([place])) 1 - 2 sprays NA PRN PRN PRN Reason: Nasal Dryness/Congestion Stop: 10/25/23 01:08 Mental Health & Subst Abuse Tx Psychiatrist Name of Psychiatrist: Trell BRAMBILA Psychiatrist's Date Of Appointment With Psychiatric Provider: 10/03/23 Time of Appointment with Psychiatrist: 2:00 pm Psychiatric Appointment Comment: Telehealth Appointment Through [employer] - Be logged before 2:00pm Therapist Name of Therapist: [facility] Therapist's Date of Therapist Appointment: 10/04/23 Time of Therapist Appointment: 10 AM Patient Experience Coordinator Name of Patient Experience Coordinator: N/A Post Discharge Appointments Primary Care Physician Name Of Family Doctor/PCP: Shasha Edmond Primary Care Provider Appointment Comment: Abdon Mauro [id number] Contact Information Discharge Discharge Address: [address] [place] [address] [place] [id number]
[2023-09-28] MEDS ORDERED: LORazepam 0.5 MG TAB PO PRN (12:45)
--- NOTE | 2023-09-28 13:41 | Psychiatric Progress Note ---
Date of Service September 28, 2023 Impression / Recommendations Impression SHU DA SILVA is a 33-year-old woman with a history of MDD, anxiety who was brought in by police for suicidal ideation in the context of marital problems ( having affair, separation) and was admitted on 09/25/23 00:01 on a 201 voluntary commitment for suicidal ideation with plan. Diagnostically consistent with major depression disorder with likely contribution of acute stress response to 's sudden request for separation and revelation of ongoing affair with associated bereavement related to this. A: Ongoing severe depression and anxiety. Reviewed medications and risks of long-term benzodiazepine use. She consents to stopping scheduled ativan at HS in favor of a longer-term option of mirtazapine. She also would like to try propranolol prn as an off-label option for anxiety given predominance of PTSD/acute stress response symptoms. Additionally she consents to titration of fluoxetine to further target symptoms of depression and anxiety. Discussed medication treatment options in detail. Discussed risks, benefits and alternatives. Reviewed side effects including but not limited to: sedation, increased appetite with mirtazapine; low BP with propranolol, GI, MCCRAY, vivid dreams with fluoxetine. She feels abilify is helpful given her history of mood lability and wants to continue with this for off-label use. Reviewed need for fasting lipid panel and glucose which she consents to. Overall, I spent a total of 40 minutes with this case including review of chart records, nursing report, review of lab work, direct evaluation of the patient at bedside, counseling the patient, multidisciplinary team meeting, orders, and documentation in the electronic health record. (1) Major depressive disorder, recurrent episode, moderate with anxious distress: (2) Borderline personality disorder: (3) Marital conflict involving divorce: (4) Screening for posttraumatic stress disorder (PTSD) negative: Plan 09/28/2023: Discontinue lorazepam 1mg at HS and change 0.5mg from scheduled BID to TID prn. Increase fluoxetine to 60mg HS. Start mirtazapine 15mg HS. Start propranolol 10mg BID prn for anxiety. Fasting lipid panel and glucose in AM. 09/27/2023: Continue medications and treatment plan. 09/26/2023: Start lorazepam 0.5 mg twice daily as needed for anxiety. Continue other medications and treatment plan. 09/25/2023: Continue home Flexeril as needed for anxiety related muscle spasms. Continue home fluoxetine 40 mg daily. Start aripiprazole 2.5 mg at bedtime. Start lorazepam 1 mg at bedtime. Inventory Assets Strengths: responsible for children, insight into conditions Needs: poor family support, trauma support Suicide Risk Level Suicide Risk Level: High-Moderate (q15 min suicide checks) (SI with plan prior to admission, ongoing depression and anxiety but denies SI and feels safe in the hospital and feels able to ask for support ) Risk Factors Assessment Male: No : No Do You Have Access To A Gun?: Yes (husbands are in the house) Health Problems: No Mental Health Diagnoses: Yes Substance Use Disorders: No Previous Attempt: Yes Family History of Suicide: No Previous Psychiatric Hospitalization: No Hopelessness: Yes Protective Factors Assessment Denominational Beliefs: Yes : Yes Responsible for Young Children: Yes Employed: Yes Stable Relationships: No Supportive Family: No Good Rapport with Provider: Yes Absence of Any Risk Factors Above: No Interval History Identifying Information SHU DA SILVA is a 33-year-old white female history of MDD, anxiety who was brought in by police for suicidal ideation in the context of marital problems ( having affair, separation). and was admitted on 09/25/23 00:01 on a 201 voluntary commitment for suicidal ideation. Chief Complaint "I just feel really overwhelmed and guilty". Review of Systems Sleep Information Total Hours of Sleep: 7 Sleep Comments: HS Ativan Meal Information Percent Meal Consumed - Breakfast: 10 Percent Meal Consumed - Lunch: 50 Percent Meal Consumed - Dinner: 50 Subjective Subjective Patient was seen & assessed and interval progress reviewed with treatment team nursing and social work. Ongoing depression and tearfulness. Feels guilty for being away from her children but also recognizes she is currently overwhelmed by her 's sudden desire to end their marriage and very tearful and anxious due to this. She continues to feel anxious almost all day long and "just really sad still". She's no longer finding that the ativan at HS is offering much benefit for sedation. Reviewed medication adjustments which she is interested in making. Hopeful she can engage with more consistent therapy in the outpatient setting as her therapist had only been able to meet twice per month recently. Physical Exam Psychiatric Orientation: alert and oriented x 3 Apperance: appropriately dressed and appropriately groomed Eye Contact: good eye contact Motor Behavior: + abnormal motor movements (shaking leg nervously ) Speech: normal rate/rhythm/volume of speech Affect: + depressed affect, + anxious affect and + tearful affect Mood: + depressed mood and + anxious mood Thought Process: goal directed thought process Thought Content: reality based without delusions and + guilt Suicidal Thoughts: denies suicidal thoughts Homicidal Thoughts: denies homicidal thoughts Hallucinations: no auditory hallucinations and no visual hallucinations Cognition: recent memory grossly intact, remote memory grossly intact, attention grossly intact and language grossly intact Insight: + fair insight Judgment: + limited judgement Vital Signs (Past 24 Hours) Last Vital Signs Temp 36.9 C 09/28/23 06:47 Pulse 100 H 09/28/23 06:47 Resp 16 09/28/23 06:47 BP 126/83 09/28/23 06:47 Pulse Ox 98 09/28/23 06:47 O2 Del Method Room Air 09/28/23 06:47 Results & Data ([facility]) Current Inpatient Medications Current Inpatient Medications: Current Inpatient Medications Acetaminophen (Acetaminophen 325 Mg Tab) 650 mg PO Q4H PRN PRN Reason: Headache or Minor Fever Stop: 10/25/23 01:08 Al Hydrox/Mg Hydrox/Simethicone (Aluminum/Magnesium Susp 30 Ml Udc) 30 ml PO Q4H PRN PRN Reason: GI Upset Stop: 10/25/23 01:08 Aripiprazole (Aripiprazole 5 Mg Tab) 2.5 mg PO HS SOLEDAD Stop: 10/25/23 21:59 Last Admin: 09/27/23 21:44 Dose: 2.5 mg Bismuth Subsalicylate (Bismuth Subsalicylate Liqd 236 Ml) 15 ml PO PRN PRN PRN Reason: Loose Stool Stop: 10/25/23 01:08 Cyclobenzaprine HCl (Cyclobenzaprine Hcl 10 Mg Tab) 10 mg PO DAILY PRN PRN Reason: Muscle Spasm Stop: 10/25/23 11:27 Fluoxetine HCl (Fluoxetine Hcl 20 Mg Cap) 60 mg PO HS SOLEDAD Stop: 10/28/23 21:59 Hydroxyzine HCl (Hydroxyzine Hcl 25 Mg Tab) 50 mg PO HSZ PRN PRN Reason: Insomnia Stop: 10/25/23 01:08 Last Admin: 09/25/23 02:02 Dose: 50 mg Hydroxyzine HCl (Hydroxyzine Hcl 25 Mg Tab) 25 mg PO Q4H PRN PRN Reason: Anxiety Stop: 10/25/23 01:08 Lorazepam (Lorazepam 0.5 Mg Tab) 0.5 mg PO TID PRN PRN Reason: Anxiety Stop: 10/28/23 13:59 Magnesium Hydroxide (Magnesium Hydroxide Susp 30 Ml Udc) 30 ml PO DAILY PRN PRN Reason: Constipation Stop: 10/25/23 01:08 Mirtazapine (Mirtazapine Tab 15 Mg Tab) 15 mg PO HS SOLEDAD Stop: 10/28/23 21:59 Clindamycin Gel - (Patient's Own Med) 1 each TOP BID SOLEDAD Stop: 10/26/23 08:59 Last Admin: 09/28/23 08:44 Dose: 1 appln Propranolol HCl (Propranolol Hcl 10 Mg Tab) 10 mg PO BID PRN PRN Reason: Anxiety Stop: 10/28/23 20:59 Sodium Chloride (Sodium Chloride 0.65% Na Soln 45 Ml ([place])) 1 - 2 sprays NA PRN PRN PRN Reason: Nasal Dryness/Congestion Stop: 10/25/23 01:08 Mental Health & Subst Abuse Tx Psychiatrist Name of Psychiatrist: Trell BRAMBILA Psychiatrist's Date Of Appointment With Psychiatric Provider: 10/03/23 Time of Appointment with Psychiatrist: 2:00 pm Psychiatric Appointment Comment: Telehealth Appointment Through 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
[2023-09-28] MEDS: FLUoxetine HCL 20 MG CAP PO SCH (20:49)
[2023-09-28] MEDS: MIRTAZAPINE TAB 15 MG TAB PO SCH (20:49)
[2023-09-29 07:50] LABS: Chol HDL Ratio 2.9 (0-5)
[2023-09-29] MEDS: hydrOXYzine HCl 25 MG TAB PO PRN (09:58)
[2023-09-29] MEDS: PROPRANOLOL HCL 10 MG TAB PO PRN (11:44)
--- NOTE | 2023-09-29 15:13 | Psychiatric Progress Note ---
Date of Service September 29, 2023 Impression / Recommendations Impression SHU DA SILVA is a 33-year-old woman with a history of MDD, anxiety who was brought in by police for suicidal ideation in the context of marital problems ( having affair, separation) and was admitted on 09/25/23 00:01 on a 201 voluntary commitment for suicidal ideation with plan. Diagnostically consistent with major depression disorder with likely contribution of acute stress response to 's sudden request for separation and revelation of ongoing affair with associated bereavement related to this. A: Ongoing depression and anxiety but feeling a bit more hopeful and future- focused today. Processing how her life will be changing in terms of becoming a single parent and thinking about how she can navigate this in a way to best support her children. Tolerating medication adjustments well so far, found mirtazapine beneficial for sleep. Fasting glucose and lipid panel reviewed and normal and reassuring given use of abilify. Overall, I spent a total of 50 minutes with this case including review of chart records, nursing report, review of lab work, direct evaluation of the patient at bedside, counseling the patient, multidisciplinary team meeting, orders, and documentation in the electronic health record. (1) Major depressive disorder, recurrent episode, moderate with anxious distress: (2) Borderline personality disorder: (3) Marital conflict involving divorce: (4) Screening for posttraumatic stress disorder (PTSD) negative: Plan 09/29/2023: Continue current medications and tx plan. 09/28/2023: Discontinue lorazepam 1mg at HS and change 0.5mg from scheduled BID to TID prn. Increase fluoxetine to 60mg HS. Start mirtazapine 15mg HS. Start propranolol 10mg BID prn for anxiety. Fasting lipid panel and glucose in AM. 09/27/2023: Continue medications and treatment plan. 09/26/2023: Start lorazepam 0.5 mg twice daily as needed for anxiety. Continue other medications and treatment plan. 09/25/2023: Continue home Flexeril as needed for anxiety related muscle spasms. Continue home fluoxetine 40 mg daily. Start aripiprazole 2.5 mg at bedtime. Start lorazepam 1 mg at bedtime. Inventory Assets Strengths: responsible for children, insight into conditions Needs: poor family support, trauma support Suicide Risk Level Suicide Risk Level: Moderate (q15 min suicide checks) (SI with plan prior to admission, ongoing depression and anxiety but more hopeful, denies SI and feels safe in the hospital and feels able to ask for support ) Risk Factors Assessment Male: No : No Do You Have Access To A Gun?: Yes (husbands are in the house) Health Problems: No Mental Health Diagnoses: Yes Substance Use Disorders: No Previous Attempt: Yes Family History of Suicide: No Previous Psychiatric Hospitalization: No Hopelessness: Yes Protective Factors Assessment Gnosticism Beliefs: Yes : Yes Responsible for Young Children: Yes Employed: Yes Stable Relationships: No Supportive Family: No Good Rapport with Provider: Yes Absence of Any Risk Factors Above: No Interval History Identifying Information SHU DA SILVA is a 33-year-old white female history of MDD, anxiety who was brought in by police for suicidal ideation in the context of marital problems ( having affair, separation). and was admitted on 09/25/23 00:01 on a 201 voluntary commitment for suicidal ideation. Chief Complaint "A little less shock today". Review of Systems Sleep Information Total Hours of Sleep: 7.5 Sleep Comments: Meal Information Percent Meal Consumed - Breakfast: 50 Percent Meal Consumed - Lunch: 90 Percent Meal Consumed - Dinner: 10 Subjective Subjective Patient was seen & assessed and interval progress reviewed with treatment team nursing and social work. She continues to feel very anxious and tearful at times but also feels she is starting to move from the shock of her 's news of wanting to separate/affair and focusing on how to be happy and give her children the best life possible despite this. She asks about possible resources for single parents and we discuss ways she can advocate for her children including possible resources once they start back at school. Feeling more hopeful. Noted to have food restriction yesterday, increased intake today. Slept well with mirtazapine, has not tried propranolol prn yet. No side effects from higher dose of fluoxetine. Physical Exam Psychiatric Orientation: alert and oriented x 3 Apperance: appropriately dressed and appropriately groomed Eye Contact: good eye contact Motor Behavior: no abnormal motor movements Speech: normal rate/rhythm/volume of speech Affect: + anxious affect and + tearful affect Mood: + depressed mood and + anxious mood Thought Process: goal directed thought process Thought Content: reality based without delusions Suicidal Thoughts: denies suicidal thoughts Homicidal Thoughts: denies homicidal thoughts Hallucinations: no auditory hallucinations and no visual hallucinations Cognition: recent memory grossly intact, remote memory grossly intact, attention grossly intact and language grossly intact Insight: + fair insight Judgment: + fair judgement Vital Signs (Past 24 Hours) Last Vital Signs Temp 36.8 C 09/29/23 06:00 Pulse 96 H 09/29/23 06:30 Resp 16 09/29/23 06:00 BP 91/60 L 09/29/23 06:30 Pulse Ox 97 09/29/23 06:00 O2 Del Method Room Air 09/29/23 06:00 Results & Data ([facility]) Laboratory Results Laboratory Results - last 24 hr 09/29/23 06:58 Fasting Glucose 87 Triglycerides 92 Cholesterol 120 LDL Cholesterol, Calc 60 VLDL Cholesterol, Calc 18 HDL Cholesterol 42 Cholesterol/HDL Ratio 2.9 Current Inpatient Medications Current Inpatient Medications: Current Inpatient Medications Acetaminophen (Acetaminophen 325 Mg Tab) 650 mg PO Q4H PRN PRN Reason: Headache or Minor Fever Stop: 10/25/23 01:08 Al Hydrox/Mg Hydrox/Simethicone (Aluminum/Magnesium Susp 30 Ml Udc) 30 ml PO Q4H PRN PRN Reason: GI Upset Stop: 10/25/23 01:08 Aripiprazole (Aripiprazole 5 Mg Tab) 2.5 mg PO HS SOLEDAD Stop: 10/25/23 21:59 Last Admin: 09/28/23 20:50 Dose: 2.5 mg Bismuth Subsalicylate (Bismuth Subsalicylate Liqd 236 Ml) 15 ml PO PRN PRN PRN Reason: Loose Stool Stop: 10/25/23 01:08 Cyclobenzaprine HCl (Cyclobenzaprine Hcl 10 Mg Tab) 10 mg PO DAILY PRN PRN Reason: Muscle Spasm Stop: 10/25/23 11:27 Fluoxetine HCl (Fluoxetine Hcl 20 Mg Cap) 60 mg PO HS SOLEDAD Stop: 10/28/23 21:59 Last Admin: 09/28/23 20:49 Dose: 60 mg Hydroxyzine HCl (Hydroxyzine Hcl 25 Mg Tab) 50 mg PO HSZ PRN PRN Reason: Insomnia Stop: 10/25/23 01:08 Last Admin: 09/25/23 02:02 Dose: 50 mg Hydroxyzine HCl (Hydroxyzine Hcl 25 Mg Tab) 25 mg PO Q4H PRN PRN Reason: Anxiety Stop: 10/25/23 01:08 Last Admin: 09/29/23 09:58 Dose: 25 mg Lorazepam (Lorazepam 0.5 Mg Tab) 0.5 mg PO TID PRN PRN Reason: Anxiety Stop: 10/28/23 13:59 Magnesium Hydroxide (Magnesium Hydroxide Susp 30 Ml Udc) 30 ml PO DAILY PRN PRN Reason: Constipation Stop: 10/25/23 01:08 Mirtazapine (Mirtazapine Tab 15 Mg Tab) 15 mg PO HS SOLEDAD Stop: 10/28/23 21:59 Last Admin: 09/28/23 20:49 Dose: 15 mg Clindamycin Gel - (Patient's Own Med) 1 each TOP BID SOLEDAD Stop: 10/26/23 08:59 Last Admin: 09/29/23 09:17 Dose: 1 appln Propranolol HCl (Propranolol Hcl 10 Mg Tab) 10 mg PO BID PRN PRN Reason: Anxiety Stop: 10/28/23 20:59 Last Admin: 09/29/23 11:44 Dose: 10 mg Sodium Chloride (Sodium Chloride 0.65% Na Soln 45 Ml ([place])) 1 - 2 sprays NA PRN PRN PRN Reason: Nasal Dryness/Congestion Stop: 10/25/23 01:08 Mental Health & Subst Abuse Tx Psychiatrist Name of Psychiatrist: Trell BRAMBILA Psychiatrist's Date Of Appointment With Psychiatric Provider: 10/03/23 Time of Appointment with Psychiatrist: 2:00 pm Psychiatric Appointment Comment: Telehealth Appointment Through [employer] logged before 2:00pm Therapist Name of Therapist: [facility] Shelby Levin Therapist's Date of Therapist Appointment: 10/04/23 Time of Therapist Appointment: 10 AM 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
--- NOTE | 2023-09-30 09:04 | Psychiatric Progress Note ---
Date of Service September 30, 2023 Impression / Recommendations Impression SHU DA SILVA is a 33-year-old woman with a history of MDD, anxiety who was brought in by police for suicidal ideation in the context of marital problems ( having affair, separation) and was admitted on 09/25/23 00:01 on a 201 voluntary commitment for suicidal ideation with plan. Diagnostically consistent with major depression disorder with likely contribution of acute stress response to 's sudden request for separation and revelation of ongoing affair with associated bereavement related to this. A: Ongoing depression and anxiety but shows some signs of improvement and increasingly more hopeful. Discussing options for additional outpatient support and referrals for aftercare. Tolerating medication adjustments well, finding additional prns for anxiety beneficial. Overall, I spent a total of 35 minutes with this case including review of chart records, nursing report, review of lab work, direct evaluation of the patient at bedside, counseling the patient, multidisciplinary team meeting, orders, and documentation in the electronic health record. (1) Major depressive disorder, recurrent episode, moderate with anxious distress: (2) Borderline personality disorder: (3) Marital conflict involving divorce: (4) Screening for posttraumatic stress disorder (PTSD) negative: Plan 09/30/2023: Continue current medications and tx plan. 09/29/2023: Continue current medications and tx plan. 09/28/2023: Discontinue lorazepam 1mg at HS and change 0.5mg from scheduled BID to TID prn. Increase fluoxetine to 60mg HS. Start mirtazapine 15mg HS. Start propranolol 10mg BID prn for anxiety. Fasting lipid panel and glucose in AM. 09/27/2023: Continue medications and treatment plan. 09/26/2023: Start lorazepam 0.5 mg twice daily as needed for anxiety. Continue other medications and treatment plan. 09/25/2023: Continue home Flexeril as needed for anxiety related muscle spasms. Continue home fluoxetine 40 mg daily. Start aripiprazole 2.5 mg at bedtime. Start lorazepam 1 mg at bedtime. Inventory Assets Strengths: responsible for children, insight into conditions Needs: poor family support, trauma support Suicide Risk Level Suicide Risk Level: Moderate (q15 min suicide checks) (SI with plan prior to admission, ongoing depression and anxiety but more hopeful, denies SI and feels safe in the hospital and feels able to ask for support ) Risk Factors Assessment Male: No : No Do You Have Access To A Gun?: Yes (husbands are in the house) Health Problems: No Mental Health Diagnoses: Yes Substance Use Disorders: No Previous Attempt: Yes Family History of Suicide: No Previous Psychiatric Hospitalization: No Hopelessness: Yes Protective Factors Assessment L[employer] Beliefs: Yes : Yes Responsible for Young Children: Yes Employed: Yes Stable Relationships: No Supportive Family: No Good Rapport with Provider: Yes Absence of Any Risk Factors Above: No Interval History Identifying Information SHU DA SILVA is a 33-year-old white female history of MDD, anxiety who was brought in by police for suicidal ideation in the context of marital problems ( having affair, separation). and was admitted on 09/25/23 00:01 on a 201 voluntary commitment for suicidal ideation. Chief Complaint "I'm ok". Review of Systems Sleep Information Total Hours of Sleep: 7.15 Sleep Comments: HS Deshawn and Acosta Meal Information Percent Meal Consumed - Breakfast: 50 Percent Meal Consumed - Lunch: 90 Percent Meal Consumed - Dinner: 90 Subjective Subjective Patient was seen & assessed and interval progress reviewed with treatment team nursing and social work. Attending groups. Appetite is improving. Still with periods of tearfulness, sadness and depression but feeling less hopeless. Notes that she "sees a path forward now when I didn't before". Found propranolol very helpful for anxiety when she took this yesterday and again today as a prn. Likes that it doesn't cause any sedation. No medication side effects. Physical Exam Psychiatric Orientation: alert and oriented x 3 Apperance: appropriately dressed and appropriately groomed Eye Contact: good eye contact Motor Behavior: no abnormal motor movements Speech: normal rate/rhythm/volume of speech Affect: + anxious affect Mood: + depressed mood and + anxious mood Thought Process: goal directed thought process Thought Content: reality based without delusions Suicidal Thoughts: denies suicidal thoughts Homicidal Thoughts: denies homicidal thoughts Hallucinations: no auditory hallucinations and no visual hallucinations Cognition: recent memory grossly intact, remote memory grossly intact, attention grossly intact and language grossly intact Insight: + fair insight Judgment: + fair judgement Vital Signs (Past 24 Hours) Last Vital Signs Temp 36.6 C 09/30/23 06:33 Pulse 105 H 09/30/23 06:34 Resp 16 09/30/23 06:33 BP 112/77 09/30/23 06:34 Pulse Ox 97 09/29/23 06:00 O2 Del Method Room Air 09/29/23 06:00 Results & Data ([facility]) Current Inpatient Medications Current Inpatient Medications: Current Inpatient Medications Acetaminophen (Acetaminophen 325 Mg Tab) 650 mg PO Q4H PRN PRN Reason: Headache or Minor Fever Stop: 10/25/23 01:08 Al Hydrox/Mg Hydrox/Simethicone (Aluminum/Magnesium Susp 30 Ml Udc) 30 ml PO Q4H PRN PRN Reason: GI Upset Stop: 10/25/23 01:08 Aripiprazole (Aripiprazole 5 Mg Tab) 2.5 mg PO HS SOLEDAD Stop: 10/25/23 21:59 Last Admin: 09/29/23 20:59 Dose: 2.5 mg Bismuth Subsalicylate (Bismuth Subsalicylate Liqd 236 Ml) 15 ml PO PRN PRN PRN Reason: Loose Stool Stop: 10/25/23 01:08 Cyclobenzaprine HCl (Cyclobenzaprine Hcl 10 Mg Tab) 10 mg PO DAILY PRN PRN Reason: Muscle Spasm Stop: 10/25/23 11:27 Fluoxetine HCl (Fluoxetine Hcl 20 Mg Cap) 60 mg PO HS SOLEDAD Stop: 10/28/23 21:59 Last Admin: 09/29/23 20:59 Dose: 60 mg Hydroxyzine HCl (Hydroxyzine Hcl 25 Mg Tab) 50 mg PO HSZ PRN PRN Reason: Insomnia Stop: 10/25/23 01:08 Last Admin: 09/25/23 02:02 Dose: 50 mg Hydroxyzine HCl (Hydroxyzine Hcl 25 Mg Tab) 25 mg PO Q4H PRN PRN Reason: Anxiety Stop: 10/25/23 01:08 Last Admin: 09/29/23 09:58 Dose: 25 mg Lorazepam (Lorazepam 0.5 Mg Tab) 0.5 mg PO TID PRN PRN Reason: Anxiety Stop: 10/28/23 13:59 Magnesium Hydroxide (Magnesium Hydroxide Susp 30 Ml Udc) 30 ml PO DAILY PRN PRN Reason: Constipation Stop: 10/25/23 01:08 Mirtazapine (Mirtazapine Tab 15 Mg Tab) 15 mg PO HS SOLEDAD Stop: 10/28/23 21:59 Last Admin: 09/29/23 21:00 Dose: 15 mg Clindamycin Gel - (Patient's Own Med) 1 each TOP BID SOLEDAD Stop: 10/26/23 08:59 Last Admin: 09/30/23 08:48 Dose: 1 appln Propranolol HCl (Propranolol Hcl 10 Mg Tab) 10 mg PO BID PRN PRN Reason: Anxiety Stop: 10/28/23 20:59 Last Admin: 09/29/23 11:44 Dose: 10 mg Sodium Chloride (Sodium Chloride 0.65% Na Soln 45 Ml ([place])) 1 - 2 sprays NA PRN PRN PRN Reason: Nasal Dryness/Congestion Stop: 10/25/23 01:08 Mental Health & Subst Abuse Tx Psychiatrist Name of Psychiatrist: Trell BRAMBILA Psychiatrist's Date Of Appointment With Psychiatric Provider: 10/03/23 Time of Appointment with Psychiatrist: 2:00 pm Psychiatric Appointment Comment: Telehealth Appointment Through [employer] - Be logged before 2:00pm Therapist Name of Therapist: [facility] Shelby Puckettaver Therapist's Date of Therapist Appointment: 10/04/23 Time of Therapist Appointment: 10 AM Polymer Scientist Name of Polymer Scientist: N/A Post Discharge Appointments Primary Care Physician Name Of Family Doctor/PCP: Shasha Edmond Primary Care Provider Appointment Comment: Abdon Mauro [id number] Contact Information Discharge Discharge Address: [address] [place] [address] [place] [id number]
[2023-09-30] MEDS: IBUPROFEN 600 MG TAB PO PRN (11:04)
[2023-09-30] MEDS ORDERED: LORazepam 0.5 MG TAB PO PRN (16:10)
--- NOTE | 2023-10-01 08:42 | Psychiatric Progress Note ---
Date of Service October 01, 2023 Impression / Recommendations Impression SHU DA SILVA is a 33-year-old woman with a history of MDD, anxiety who was brought in by police for suicidal ideation in the context of marital problems ( having affair, separation) and was admitted on 09/25/23 00:01 on a 201 voluntary commitment for suicidal ideation with plan. Diagnostically consistent with major depression disorder with likely contribution of acute stress response to 's sudden request for separation and revelation of ongoing affair with associated bereavement related to this. A: Mood improving, anxiety lessening significantly. Future-oriented planning. Continues to tolerate her medications well. Discussed BPD/PTSD overlap and option for IOP focused on CBT/DBT in the future should she desire this. For now she'd like to see how increased frequency of individual therapy goes. Completed FMLA paperwork. Overall, I spent a total of 50 minutes with this case including review of chart records, nursing report, review of lab work, direct evaluation of the patient at bedside, counseling the patient, multidisciplinary team meeting, orders, completion of FMLA paperwork and documentation in the electronic health record. (1) Major depressive disorder, recurrent episode, moderate with anxious distress: (2) Depression with suicidal ideation: (3) Borderline personality disorder: (4) Marital conflict involving divorce: (5) Complex posttraumatic stress disorder: (6) Generalized anxiety disorder with panic attacks: Plan 09/30/2023: Continue current medications and tx plan. 09/29/2023: Continue current medications and tx plan. 09/28/2023: Discontinue lorazepam 1mg at HS and change 0.5mg from scheduled BID to TID prn. Increase fluoxetine to 60mg HS. Start mirtazapine 15mg HS. Start propranolol 10mg BID prn for anxiety. Fasting lipid panel and glucose in AM. 09/27/2023: Continue medications and treatment plan. 09/26/2023: Start lorazepam 0.5 mg twice daily as needed for anxiety. Continue other medications and treatment plan. 09/25/2023: Continue home Flexeril as needed for anxiety related muscle spasms. Continue home fluoxetine 40 mg daily. Start aripiprazole 2.5 mg at bedtime. Start lorazepam 1 mg at bedtime. Inventory Assets Strengths: responsible for children, insight into conditions Needs: poor family support, trauma support Suicide Risk Level Suicide Risk Level: Moderate (q15 min suicide checks) (SI with plan prior to admission, ongoing depression and anxiety but more hopeful, denies SI and feels safe in the hospital and feels able to ask for support ) Risk Factors Assessment Male: No : No Do You Have Access To A Gun?: Yes (husbands are in the house) Health Problems: No Mental Health Diagnoses: Yes Substance Use Disorders: No Previous Attempt: Yes Family History of Suicide: No Previous Psychiatric Hospitalization: No Hopelessness: Yes Protective Factors Assessment [employer] Beliefs: Yes : Yes Responsible for Young Children: Yes Employed: Yes Stable Relationships: No Supportive Family: No Good Rapport with Provider: Yes Absence of Any Risk Factors Above: No Interval History Identifying Information SHU DA SILVA is a 33-year-old white female history of MDD, anxiety who was brought in by police for suicidal ideation in the context of marital problems ( having affair, separation). and was admitted on 09/25/23 00:01 on a 201 voluntary commitment for suicidal ideation. Chief Complaint "Pretty good". Review of Systems Sleep Information Total Hours of Sleep: 7.5 Sleep Comments: JARON Hess and Acosta Meal Information Percent Meal Consumed - Breakfast: 50 Percent Meal Consumed - Lunch: 75 Percent Meal Consumed - Dinner: 95 Subjective Subjective Patient was seen & assessed and interval progress reviewed with treatment team nursing and social work. Going to groups, engaging with peers, facetimed with her children last evening. Still with anxiety but feeling less anxious overall and mood improving. Reviewed Rajni BPD questionnaire which was positive, discussed overlap with complex PTSD symptoms. Discussed DBT. Continuing to tolerate her medications. Slept well until awoken by construction noise this morning. Physical Exam Psychiatric Orientation: alert and oriented x 3 Apperance: appropriately dressed and appropriately groomed Eye Contact: good eye contact Motor Behavior: no abnormal motor movements Speech: normal rate/rhythm/volume of speech Affect: + anxious affect Mood: + anxious mood Thought Process: goal directed thought process Thought Content: reality based without delusions Suicidal Thoughts: denies suicidal thoughts Homicidal Thoughts: denies homicidal thoughts Hallucinations: no auditory hallucinations and no visual hallucinations Cognition: recent memory grossly intact, remote memory grossly intact, attention grossly intact and language grossly intact Insight: good insight Judgment: + fair judgement Vital Signs (Past 24 Hours) Last Vital Signs Temp 36.9 C 10/01/23 06:34 Pulse 90 10/01/23 06:35 Resp 16 10/01/23 06:34 BP 117/73 10/01/23 06:35 Pulse Ox 97 09/29/23 06:00 O2 Del Method Room Air 09/29/23 06:00 Results & Data ([facility]) Current Inpatient Medications Current Inpatient Medications: Current Inpatient Medications Acetaminophen (Acetaminophen 325 Mg Tab) 650 mg PO Q4H PRN PRN Reason: Headache or Minor Fever Stop: 10/25/23 01:08 Al Hydrox/Mg Hydrox/Simethicone (Aluminum/Magnesium Susp 30 Ml Udc) 30 ml PO Q4H PRN PRN Reason: GI Upset Stop: 10/25/23 01:08 Aripiprazole (Aripiprazole 5 Mg Tab) 2.5 mg PO HS SOLEDAD Stop: 10/25/23 21:59 Last Admin: 09/30/23 21:10 Dose: 2.5 mg Bismuth Subsalicylate (Bismuth Subsalicylate Liqd 236 Ml) 15 ml PO PRN PRN PRN Reason: Loose Stool Stop: 10/25/23 01:08 Cyclobenzaprine HCl (Cyclobenzaprine Hcl 10 Mg Tab) 10 mg PO DAILY PRN PRN Reason: Muscle Spasm Stop: 10/25/23 11:27 Fluoxetine HCl (Fluoxetine Hcl 20 Mg Cap) 60 mg PO HS SOLEDAD Stop: 10/28/23 21:59 Last Admin: 09/30/23 21:10 Dose: 60 mg Hydroxyzine HCl (Hydroxyzine Hcl 25 Mg Tab) 50 mg PO HSZ PRN PRN Reason: Insomnia Stop: 10/25/23 01:08 Last Admin: 09/25/23 02:02 Dose: 50 mg Hydroxyzine HCl (Hydroxyzine Hcl 25 Mg Tab) 25 mg PO Q4H PRN PRN Reason: Anxiety Stop: 10/25/23 01:08 Last Admin: 09/30/23 11:06 Dose: 25 mg Ibuprofen (Ibuprofen 600 Mg Tab) 600 mg PO Q8H PRN PRN Reason: cramps Stop: 10/30/23 10:29 Last Admin: 09/30/23 11:04 Dose: 600 mg Lorazepam (Lorazepam 0.5 Mg Tab) 0.5 mg PO BID PRN PRN Reason: Anxiety Stop: 10/28/23 12:44 Magnesium Hydroxide (Magnesium Hydroxide Susp 30 Ml Udc) 30 ml PO DAILY PRN PRN Reason: Constipation Stop: 10/25/23 01:08 Mirtazapine (Mirtazapine Tab 15 Mg Tab) 15 mg PO HS SOLEDAD Stop: 10/28/23 21:59 Last Admin: 09/30/23 21:12 Dose: 15 mg Clindamycin Gel - (Patient's Own Med) 1 each TOP BID SOLEDAD Stop: 10/26/23 08:59 Last Admin: 09/30/23 21:10 Dose: 1 appln Propranolol HCl (Propranolol Hcl 10 Mg Tab) 10 mg PO BID PRN PRN Reason: Anxiety Stop: 10/28/23 20:59 Last Admin: 09/30/23 13:11 Dose: 10 mg Sodium Chloride (Sodium Chloride 0.65% Na Soln 45 Ml ([place])) 1 - 2 sprays NA PRN PRN PRN Reason: Nasal Dryness/Congestion Stop: 10/25/23 01:08 Mental Health & Subst Abuse Tx Psychiatrist Name of Psychiatrist: Trell BRAMBILA Psychiatrist's Date Of Appointment With Psychiatric Provider: 10/03/23 Time of Appointment with Psychiatrist: 2:00 pm Psychiatric Appointment Comment: Telehealth Appointment Through [facility] Be logged before 2:00pm Therapist Name of Therapist: [facility] Shelby Levin Therapist's Date of Therapist Appointment: 10/04/23 Time of Therapist Appointment: 10 AM Strong Nitric Operator Name of Strong Nitric Operator: N/A Post Discharge Appointments Primary Care Physician Name Of Family Doctor/PCP: Shasha Edmond Primary Care Provider Appointment Comment: Abdon Mauro [phone] Contact Information Discharge Discharge Address: [address] [place] [address], [place] [id number]
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
== END 2023-10-02 11:02 | disposition home or self-care (01) | DRG 885 ==
LOC: ED 20:35 → 3S 09-25 00:01 → SUATTDRO 09-25 00:01 → 3S 09-25 00:14